=== PATIENT | male | born 1960 | race Caucasian/White ===

== ENCOUNTER 2016-06-30 12:11 | Emergency (ER) | payer OTHER ==
[2016-06-30] MEDS ORDERED: Ondansetron INJ* 2 MG/ML VIAL IV ONE (12:39)
[2016-06-30] MEDS ORDERED: Morphine INJ* 4 MG/ML 1 ML SYRINGE IV ONE (12:39)
[2016-06-30] MEDS ORDERED: NS 0.9% 1000 ML* 1,000 ML IV SCH (12:45)
[2016-06-30 13:04] LABS: Hematocrit 38 % (42-52); Hemoglobin 12.9 g/dl (14.0-18.0); Mean Corpuscular HGB Conc 34 g/dl (31-36); Mean Corpuscular Hemoglobin 32 pg (27-31); Mean Corpuscular Volume 94 fL (80-94); Mean Platelet Volume 7 um3 (7.4-10.4); Red Blood Count 4.03 10^6/ul (4.0-5.4); Red Cell Distribution Width 14 % (10.5-15); White Blood Count 6.5 10^3/ul (3.5-10.8)
[2016-06-30 13:18] LABS: Ammonia 68 mol/L (16-53)
[2016-06-30 13:20] LABS: ALT 30 U/L (7-52); AST 24 U/L (13-39); Albumin 4.1 g/dL (3.2-5.2); Alkaline Phosphatase 47 U/L (34-104); Anion Gap 7 mmol/L (2-11); Blood Urea Nitrogen 15 mg/dL (6-24); C Reactive Protein 4.75 mg/L (< 5.00); CO2 Carbon Dioxide 25 mmol/L (22-32); Calcium 9.7 mg/dL (8.6-10.3); Chloride 105 mmol/L (101-111); Creatine Kinase 76 U/L (10-223); EGFR African American 91.9 (>60); EGFR Non-African American 71.5 (>60); Globulin 2.8 g/dL (2-4); Glucose 100 mg/dL (70-100); Lipase 22 U/L (11.0-82.0); Magnesium 1.9 mg/dL (1.9-2.7); Potassium 3.9 mmol/L (3.5-5.0); Sodium 137 mmol/L (133-145); Total Protein 6.9 g/dL (6.4-8.9)
[2016-06-30 13:23] LABS: B Type Natriuretic Peptide 117 pg/mL
--- NOTE | 2016-06-30 13:32 | RAD ---
HISTORY: Abdominal pain COMPARISONS: June 04, 2015 VIEWS:1: Single frontal portable view of the chest at 1:21 PM FINDINGS: LINES AND TUBES: None. CARDIOMEDIASTINAL SILHOUETTE: The cardiomediastinal silhouette is normal for portable technique. PLEURA: The costophrenic angles are sharp. No pleural abnormalities are noted. LUNG PARENCHYMA: The lungs are clear. ABDOMEN: The upper abdomen is clear. There is no subphrenic gas. BONES AND SOFT TISSUES: No bone or soft tissue abnormalities are noted. IMPRESSION: NO ACTIVE CARDIOPULMONARY DISEASE.
[2016-06-30 13:39] LABS: Acetaminophen < 15 mcg/mL; Alcohol < 10 mg/dL (<10)
[2016-06-30 13:49] LABS: TSH (Thyroid Stimulating Horm) 2.13 mcIU/mL (0.34-5.60)
[2016-06-30] MEDS ORDERED: Iohexol 300* (CONTRAST) 10 ML SDV IV ONE (14:17)
[2016-06-30 14:55] LABS: Urine Bilirubin Negative (Negative); Urine Glucose Negative (Negative); Urine Nitrite Negative (Negative)
--- NOTE | 2016-06-30 15:55 | RAD ---
Indication: Lower abdominal pain. Contrast: Administered 120.3 ml of OMNIPAQUE 300 mg/ml CT of the abdomen and pelvis was performed after oral and IV contrast administration. Coronal and sagittal reconstructed images were obtained. The lung bases imaging no pleural fluid, nodules or masses. Heart is of normal size without evidence of pericardial effusion. Liver is normal in size. No focal lesions or intrahepatic ductal dilatation is noted. Spleen is normal in size. The gallbladder demonstrates no calcified gallstones. The pancreas demonstrates no mass or pancreatic duct dilatation. Common duct is not dilated. There is a left adrenal lesion measuring approximately 19 mm. This is consistent with a small adenoma. This is unchanged from previous exam of November 26, 2013. The kidneys demonstrates no hydronephrosis of either kidney. No solid masses are noted. No retroperitoneal lymphadenopathy is noted. No aneurysmal dilatation of the aorta is noted. No retroperitoneal adenopathy is noted. Iliac arteries are unremarkable. CT of the pelvis no retroperitoneal or pelvic lymphadenopathy. The urinary bladder is unremarkable the colon is filled with stool. The prostate is otherwise unremarkable. No hernias are noted. Urinary bladder is otherwise unremarkable. Colon is filled with stool. Evaluation of the small bowel demonstrates moderate distention of the proximal jejunum. The mid jejunum collapsed cyst to normal caliber. There appears to be some stricturing of the small bowel in the left mid abdomen. The possibility of adhesions should BE considered. This may be causing partial small bowel obstruction. IMPRESSION: THERE ARE SOME MODERATELY DISTENDED LOOPS OF SMALL BOWEL INVOLVING THE DUODENUM AND PROXIMAL JEJUNUM WITH SUGGESTION OF A NARROWING OF CALIBER OF SMALL BOWEL IN THE LEFT MID ABDOMEN. THE POSSIBILITY OF AN ADHESION SHOULD BE CONSIDERED. SIMILAR FINDINGS WERE PRESENT ON PRIOR EXAM OF NOVEMBER 26, 2013. LEFT ADRENAL MASS IS UNCHANGED FROM PREVIOUS EXAM. NO OTHER MASSES OR FLUID COLLECTIONS ARE NOTED.
--- NOTE | 2016-06-30 17:13 | ED ---
Jonathan Huynh Billy, scribed for Anthony Grant MD on 06/30/16 at 1235 . Abdominal Pain/Male - HPI Summary HPI Summary: Patient is a 55 year-old male coming to [facility] presenting with 10 days of lower abdominal pain. He states that he has sharp, stabbing pain in the bilateral lower quadrants. Nothing makes his symptoms better or worse. Pain severity 8/ 10. He states that he is somewhat constipated and that he has abnormally hard stools. Denies any fevers or chills. PSHx of appendectomy. - History of Current Complaint Chief Complaint: EDAbdPain Stated Complaint: ABD PAIN Time Seen by Provider: 06/30/16 12:29 Hx Obtained From: Patient Onset/Duration: Gradual Onset, Lasting Days, Still Present Timing: Constant Severity Initially: Moderate Severity Currently: Moderate Pain Intensity: 8 Pain Scale Used: 0-10 Numeric Location: Discrete At: RLQ, Discrete At: LLQ Character: Sharp Aggravating Factor(s): Nothing Alleviating Factor(s): Nothing Associated Signs And Symptoms: Positive: Constipation, Other - hard stools. Negative: Nausea - Allergies/Home Medications Allergies/Adverse Reactions: Allergies Allergy/AdvReac Type Severity Reaction Status Date / Time Gabapentin AdvReac Nausea And Verified 01/04/16 14:58 Vomiting Home Medications: Home Medications Aspirin Low Dose CHEW TAB* [Aspirin Low Dose TAB*] 81 mg PO DAILY 06/30/16 [ History Confirmed 06/30/16] Cholecalciferol [Vitamin D3 Super Strength] 2,000 unit PO DAILY 06/30/16 [ History Confirmed 06/30/16] Ferrous Sulfate TAB* 325 mg PO DAILY 06/30/16 [History Confirmed 06/30/16] Lisinopril/HCTZ 20/25(NF) [Zestoretic 20/25(NF)] 1 tab PO DAILY 06/30/16 [ History Confirmed 06/30/16] LoraTADine TAB(NF) [Claritin 10 MG TAB(NF)] 10 mg PO DAILY 06/30/16 [History Confirmed 06/30/16] Simvastatin TAB(NF) [Zocor(NF)] 10 mg PO DAILY 06/30/16 [History Confirmed 06/30] Tizanidine HCl 4 mg PO Q8HR PRN 06/30/16 [History Confirmed 06/30/16] amLODIPine TAB* [Norvasc TAB*] 5 mg PO DAILY 06/30/16 [History Confirmed ] PMH/Surg Hx/FS Hx/Imm Hx Endocrine/Hematology History: Reports: Hx Anemia Denies: Hx Anticoagulant Therapy, Hx Diabetes, Hx Thyroid Disease Cardiovascular History: Reports: Hx Angina, Hx Hypercholesterolemia, Hx Hypertension Denies: Hx Congestive Heart Failure, Hx Pacemaker/ICD Respiratory History: Reports: Hx Chronic Obstructive Pulmonary Disease (COPD), Other Respiratory Problems/Disorders - copd Denies: Hx Asthma GI History: Reports: Hx Gastroesophageal Reflux Disease, Other GI Disorders - appendectomy 11/2013 History: Denies: Hx Renal Disease Musculoskeletal History: Reports: Hx Back Problems - chronic low back pain, sciatica, Other Musculoskeletal History - back pain chronic Sensory History: Reports: Hx Contacts or Glasses Opthamlomology History: Reports: Hx Contacts or Glasses Neurological History: Reports: Other Neuro Impairments/Disorders - epilepsy, ETOH abuse Denies: Hx Dementia, Hx Seizures Psychiatric History: Reports: Hx Substance Abuse Denies: Hx Panic Disorder - Surgical History Surgery Procedure, Year, and Place: s/p appendectomy 11/2013 Hx Anesthesia Reactions: No - Immunization History Date of Tetanus Vaccine: Unk Date of Influenza Vaccine: None Infectious Disease History: No Infectious Disease History: Denies: Hx Hepatitis, Hx Human Immunodeficiency Virus (HIV), Traveled Outside the [place] in Last 30 Days - Family History Known Family History: Positive: Other - cancer - Social History Alcohol Use: Occasionally Alcohol Amount: no alcohol today Hx Substance Use: No Substance Use Type: Reports: None Substance Use Comment - Amount & Last Used: Daily Hx Tobacco Use: No - quit 2013 Smoking Status (MU): Former Smoker Type: Cigarettes Amount Used/How Often: quit 3 years ago Have You Smoked in the Last Year: Yes Review of Systems Negative: Fever, Chills Negative: Chest Pain Negative: Shortness Of Breath Positive: Abdominal Pain, Other - constipation, hard stools. Negative: Nausea Negative: Myalgia, Edema All Other Systems Reviewed And Are Negative: Yes Physical Exam Triage Information Reviewed: Yes Vital Signs On Initial Exam: Initial Vitals Temp Pulse Resp BP Pulse Ox 98.6 F 75 18 123/67 98 06/30/16 12:19 06/30/16 12:19 06/30/16 12:19 06/30/16 12:19 06/30/16 12:19 Vital Signs Reviewed: Yes Appearance: Positive: Well-Appearing, No Pain Distress Skin: Positive: Warm, Skin Color Reflects Adequate Perfusion, Dry Head/Face: Positive: Normal Head/Face Inspection Eyes: Positive: EOMI, FAWN Neck: Positive: Supple, Nontender Respiratory/Lung Sounds: Positive: Clear to Auscultation, Breath Sounds Present Cardiovascular: Positive: RRR Abdomen Description: Positive: Soft, Other: - Tenderness in the bilateral lower quadrants. Bowel Sounds: Positive: Hypoactive Musculoskeletal: Positive: Normal, Strength/ROM Intact Neurological: Positive: Normal, Sensory/Motor Intact, Alert, Oriented to Person Place, Time Psychiatric: Positive: Affect/Mood Appropriate Diagnostics - Vital Signs Vital Signs Temp Pulse Resp BP Pulse Ox 06/30/16 12:19 98.6 F 75 18 123/67 98 - Laboratory Lab Results: Lab Results 06/30/16 06/30/16 06/30/16 Range/Units 12:50 12:50 12:50 WBC 6.5 (3.5-10.8) 10^3/ul RBC 4.03 (4.0-5.4) 10^6/ul Hgb 12.9 L (14.0-18.0) g/dl Hct 38 L (42-52) % MCV 94 (80-94) fL MCH 32 H (27-31) pg MCHC 34 (31-36) g/dl RDW 14 (10.5-15) % Plt Count 386 (150-450) 10^3/ul MPV 7 L (7.4-10.4) um3 Neut % (Auto) 55.4 (38-83) % Lymph % (Auto) 28.5 (25-47) % Whitley % (Auto) 13.3 H (1-9) % Eos % (Auto) 1.3 (0-6) % Baso % (Auto) 1.5 (0-2) % Absolute Neuts (auto) 3.6 (1.5-7.7) 10^3/ul Absolute Lymphs (auto) 1.9 (1.0-4.8) 10^3/ul Absolute Monos (auto) 0.9 H (0-0.8) 10^3/ul Absolute Eos (auto) 0.1 (0-0.6) 10^3/ul Absolute Basos (auto) 0.1 (0-0.2) 10^3/ul Absolute Nucleated RBC 0 10^3/ul Nucleated RBC % 0.1 INR (Anticoag Therapy) 0.94 (0.89-1.11) APTT 27.9 (26.0-36.3) seconds Sodium 137 (133-145) mmol/L Potassium 3.9 (3.5-5.0) mmol/L Chloride 105 (101-111) mmol/L Carbon Dioxide 25 (22-32) mmol/L Anion Gap 7 (2-11) mmol/L BUN 15 (6-24) mg/dL Creatinine 1.07 (0.67-1.17) mg/dL Est GFR ( Amer) 91.9 (>60) Est GFR (Non-Af Amer) 71.5 (>60) BUN/Creatinine Ratio 14.0 (8-20) Glucose 100 (70-100) mg/dL Lactic Acid (0.5-2.0) mmol/L Calcium 9.7 (8.6-10.3) mg/dL Magnesium 1.9 (1.9-2.7) mg/dL Total Bilirubin 0.30 (0.2-1.0) mg/dL AST 24 (13-39) U/L ALT 30 (7-52) U/L Alkaline Phosphatase 47 (34-104) U/L Ammonia (16-53) mol/L Total Creatine Kinase 76 (10-223) U/L CK-MB (CK-2) 1.1 (0.6-6.3) ng/mL Troponin I 0.00 (<0.04) ng/mL C-Reactive Protein 4.75 (< 5.00) mg/L B-Natriuretic Peptide ( - 100) pg/mL Total Protein 6.9 (6.4-8.9) g/dL Albumin 4.1 (3.2-5.2) g/dL Globulin 2.8 (2-4) g/dL Albumin/Globulin Ratio 1.5 (1-3) Lipase 22 (11.0-82.0) U/L TSH 2.13 (0.34-5.60) mcIU/mL Urine Color Urine Appearance Urine pH (5-9) Ur Specific Eola (1.010-1.030) Urine Protein (Negative) Urine Ketones (Negative) Urine Blood (Negative) Urine Nitrate (Negative) Urine Bilirubin (Negative) Urine Urobilinogen (Negative) Ur Leukocyte Esterase (Negative) Urine Glucose (Negative) Urine Ascorbic Acid (Negative) Acetaminophen < 15 mcg/mL Serum Alcohol < 10 (<10) mg/dL 06/30/16 06/30/16 06/30/16 Range/Units 12:50 12:50 14:45 WBC (3.5-10.8) 10^3/ul RBC (4.0-5.4) 10^6/ul Hgb (14.0-18.0) g/dl Hct (42-52) % MCV (80-94) fL MCH (27-31) pg MCHC (31-36) g/dl RDW (10.5-15) % Plt Count (150-450) 10^3/ul MPV (7.4-10.4) um3 Neut % (Auto) (38-83) % Lymph % (Auto) (25-47) % Whitley % (Auto) (1-9) % Eos % (Auto) (0-6) % Baso % (Auto) (0-2) % Absolute Neuts (auto) (1.5-7.7) 10^3/ul Absolute Lymphs (auto) (1.0-4.8) 10^3/ul Absolute Monos (auto) (0-0.8) 10^3/ul Absolute Eos (auto) (0-0.6) 10^3/ul Absolute Basos (auto) (0-0.2) 10^3/ul Absolute Nucleated RBC 10^3/ul Nucleated RBC % INR (Anticoag Therapy) (0.89-1.11) APTT (26.0-36.3) seconds Sodium (133-145) mmol/L Potassium (3.5-5.0) mmol/L Chloride (101-111) mmol/L Carbon Dioxide (22-32) mmol/L Anion Gap (2-11) mmol/L BUN (6-24) mg/dL Creatinine (0.67-1.17) mg/dL Est GFR ( Amer) (>60) Est GFR (Non-Af Amer) (>60) BUN/Creatinine Ratio (8-20) Glucose (70-100) mg/dL Lactic Acid 1.0 (0.5-2.0) mmol/L Calcium (8.6-10.3) mg/dL Magnesium (1.9-2.7) mg/dL Total Bilirubin (0.2-1.0) mg/dL AST (13-39) U/L ALT (7-52) U/L Alkaline Phosphatase (34-104) U/L Ammonia 68 H (16-53) mol/L Total Creatine Kinase (10-223) U/L CK-MB (CK-2) (0.6-6.3) ng/mL Troponin I (<0.04) ng/mL C-Reactive Protein (< 5.00) mg/L B-Natriuretic Peptide 117 H ( - 100) pg/mL Total Protein (6.4-8.9) g/dL Albumin (3.2-5.2) g/dL Globulin (2-4) g/dL Albumin/Globulin Ratio (1-3) Lipase (11.0-82.0) U/L TSH (0.34-5.60) mcIU/mL Urine Color Yellow Urine Appearance Clear Urine pH 6.0 (5-9) Ur Specific Eola 1.013 (1.010-1.030) Urine Protein Negative (Negative) Urine Ketones Negative (Negative) Urine Blood Negative (Negative) Urine Nitrate Negative (Negative) Urine Bilirubin Negative (Negative) Urine Urobilinogen Negative (Negative) Ur Leukocyte Esterase Negative (Negative) Urine Glucose Negative (Negative) Urine Ascorbic Acid * H (Negative) Acetaminophen mcg/mL Serum Alcohol (<10) mg/dL Result Diagrams: 06/30/16 12:50 06/30/16 12:50 Lab Statement: Any lab studies that have been ordered have been reviewed, and results considered in the medical decision making process. - Radiology CXR Xray Interpretation: No Acute Changes Radiology Interpretation Completed By: Radiologist - CT abd/pel w CT Interpretation Completed By: Radiologist - THERE ARE SOME MODERATELY DISTENDED LOOPS OF SMALL BOWEL INVOLVING THE DUODENUM AND PROXIMAL JEJUNUM WITH SUGGESTION OF A NARROWING OF CALIBER OF SMALL BOWEL IN THE LEFT MID ABDOMEN. THE POSSIBILITY OF AN ADHESION SHOULD BE CONSIDERED. SIMILAR FINDINGS WERE PRESENT ON PRIOR EXAM OF NOVEMBER 26, 2013. LEFT ADRENAL MASS IS UNCHANGED FROM PREVIOUS EXAM. NO OTHER MASSES OR FLUID COLLECTIONS ARE NOTED. Abdominal Pain Fem Course/Dx - Course Assessment/Plan: WELL IN ED. DISCUSSED RESULTS WITH PATIENT. ON CT THERE APPEARS TO BE A NARROWING OF THE SMALL BOWEL. DISCUSSED WITH PATIENT AND DR ALVARADO, SURGERY. PATIENT'S PAIN UNDER CONTROL AT THIS TIME, TOLERATING PO. HE WILL F/U OUT PATIENT WITH SURGERY. HE WAS TOLD, AND AGREED, TO RETURNING TO THE EMERGENCY DEPARTMENT IF HE WORSENS OR HAS ANY QUESTIONS OR CONCERNS. DISCHARGE HOME STABLE. - Diagnoses Provider Diagnoses: Abdominal pain - Provider Notifications Discussed Care Of Patient With: Dr. Alvarado (surgery) @ [id number]: recommends follow up as outpatient. Discharge - Discharge Plan Condition: Stable Disposition: HOME Patient Education Materials: Abdominal Pain (ED) Referrals: Jamie Neri MD [Primary Care Provider] - Vince Alvarado MD [Medical Doctor] - Additional Instructions: FOLLOW UP WITH SURGERY, DR ALVARADO. CALL HIS OFFICE FOR A FOLLOW UP. RETURN TO THE EMERGENCY DEPARTMENT FOR ANY WORSENING OF YOUR CONDITION; PAIN, VOMITING, FEVER, YOU FEEL ILL OR QUESTIONS OR CONCERNS. The documentation as recorded by the Jonathan rome Billy accurately reflects the service I personally performed and the decisions made by me, Anthony Grant MD.
[2016-06-30 17:16] VITALS: BP 115/74
== END 2016-06-30 17:22 | disposition home or self-care (01) ==
LOC: ED 12:11
DX: R10.32 Left lower quadrant pain (principal); K59.00 Constipation, unspecified; Z87.891 Personal history of nicotine dependence
CPT/HCPCS: 36415; 71010; 74177; 80053; 80320; 80329; 81003; 82140; 82550; 82553; 83605; 83690; 83735; 83880; 84443; 84484; 85025; 85610; 85730; 86140; 96374; 96375; 99284; G0480; J2270; J2405; Q9967

== ENCOUNTER 2016-11-05 10:21 | Emergency (ER) | payer OTHER ==
[2016-11-05 10:38] VITALS: BP 116/60
--- NOTE | 2016-11-05 11:33 | UC ---
Ear Complaint HPI - HPI Summary HPI Summary: 3 days ago he punctured left ear drum with a q-tip, he has had pain and bloody drainage - History of Current Complaint Chief Complaint: EDEarPain Stated Complaint: EAR PAIN Time Seen by Provider: 11/05/16 11:19 Hx Obtained From: Patient Onset/Duration: Sudden Onset Severity Initially: Moderate Severity Currently: Moderate Pain Intensity: 7 Pain Scale Used: 0-10 Numeric Aggravating Factors: Nothing Alleviating Factors: Nothing Associated Signs/Symptoms: Positive: Discharge, Trauma to Ear. Negative: Hearing Loss, Foreign Body Sensation, Swelling @, URI Symptoms - Allergies/Home Medications Allergies/Adverse Reactions: Allergies Allergy/AdvReac Type Severity Reaction Status Date / Time Gabapentin AdvReac Nausea And Verified 01/04/16 14:58 Vomiting PMH/Surg Hx/FS Hx/Imm Hx Previously Healthy: No - Anemia Endocrine History: Diabetes Cardiovascular History: Hypertension, Myocardial Infarction Respiratory History: COPD GI/ History: Gastroesophageal Reflux Neurological History: CVA Other History Of: Negative For: Anticoagulant Therapy - Surgical History Surgical History: Yes Surgery Procedure, Year, and Place: s/p appendectomy 11/2013 - Family History Known Family History: Positive: Other - cancer - Social History Occupation: Disabled Lives: Alone Alcohol Use: Occasionally Alcohol Amount: no alcohol today Substance Use Type: None Substance Use Comment - Amount & Last Used: Daily Smoking Status (MU): Former Smoker Type: Cigarettes Amount Used/How Often: quit 3 years ago Have You Smoked in the Last Year: Yes When Did the Patient Quit Smoking/Using Tobacco: November 2013 Household Exposure Type: Cigarettes - Immunization History Most Recent Influenza Vaccination: unknown Most Recent Tetanus Shot: 2011?? Most Recent Pneumonia Vaccination: never Review of Systems Constitutional: Negative Skin: Negative Eyes: Negative ENT: Ear Ache - left ear pain with blood drainage Respiratory: Negative Cardiovascular: Negative Gastrointestinal: Negative Genitourinary: Negative Motor: Negative Neurovascular: Negative Musculoskeletal: Negative Neurological: Negative Psychological: Negative All Other Systems Reviewed And Are Negative: Yes Physical Exam Triage Information Reviewed: Yes Appearance: Well-Appearing - poor self care, Pain Distress - mild, Obese Vital Signs: Initial Vital Signs Temp 98.8 F 11/05/16 10:36 Pulse 60 11/05/16 10:36 Resp 17 11/05/16 10:36 BP 116/60 11/05/16 10:36 Pulse Ox 100 11/05/16 10:36 Vital Signs Reviewed: Yes Eye Exam: Normal Eyes: Positive: Conjunctiva Clear ENT Exam: Normal ENT: Positive: Normal ENT inspection, Hearing grossly normal, Pharynx normal, TMs normal - right, Other: - left tm with blood clot and apparent rupture about 7 o'clock. Negative: Nasal congestion, Nasal drainage, Tonsillar swelling, Tonsillar exudate, Trismus, Muffled/hoarse voice Neck exam: Normal Neck: Positive: Supple, Nontender Respiratory Exam: Normal Respiratory: Positive: No respiratory distress, No accessory muscle use Cardiovascular Exam: Normal Cardiovascular: Positive: RRR, Pulses Normal, Brisk Capillary Refill Musculoskeletal Exam: Normal Musculoskeletal: Positive: Strength Intact, ROM Intact, No Edema Neurological Exam: Normal Neurological: Positive: Alert, Muscle Tone Normal Psychological Exam: Normal Skin Exam: Normal Ear Complaint Course/Dx - Course Course Of Treatment: ofloxin ear drops, tylenol/ibuprofen for pain, keep ear bone dry, follow with PCP this week - Differential Dx/Diagnosis Differential Diagnosis/HQI/PQRI: Cellulitis, Cerumen Impaction, Otitis Externa, Otitis Media, Perforated TM, URI Provider Diagnoses: Left Perferation of TM Discharge - Discharge Plan Condition: Stable Disposition: HOME Prescriptions: Ofloxacin (Otic) [Floxin Otic] 0.3 % OT BID #5 drop Patient Education Materials: Ruptured Eardrum (ED) Referrals: Jamie Neri MD [Primary Care Provider] - 1 Week Additional Instructions: 1. It is vital that you keep your ear canal BONE DRY! 2. ALSO Imperative you get rechecked by primary care this week to assure this is healing as you may need referral to [facility]!
== END 2016-11-05 11:49 | disposition home or self-care (01) ==
LOC: ED 10:21
DX: H72.92 Unspecified perforation of tympanic membrane, left ear (principal); Z87.891 Personal history of nicotine dependence; I25.2 Old myocardial infarction; I10 Essential (primary) hypertension; E11.9 Type 2 diabetes mellitus without complications; K21.9 Gastro-esophageal reflux disease without esophagitis
CPT/HCPCS: 99282

== ENCOUNTER 2016-11-14 12:44 | Emergency (ER) | payer OTHER ==
[2016-11-14] MEDS ORDERED: Ondansetron INJ* 2 MG/ML VIAL IV ONE (14:55)
[2016-11-14] MEDS ORDERED: Tetan/Diph/Pertus SYR(Tdap)* 0.5 ML SYR(BOOSTRIX) use SYR IM ONE (14:55)
[2016-11-14] MEDS ORDERED: Morphine INJ* 4 MG/ML 1 ML SYRINGE IV ONE (14:55)
[2016-11-14 15:06] LABS: Hematocrit 39 % (42-52); Hemoglobin 13.2 g/dl (14.0-18.0); Mean Corpuscular HGB Conc 34 g/dl (31-36); Mean Corpuscular Hemoglobin 33 pg (27-31); Mean Corpuscular Volume 96 fL (80-94); Mean Platelet Volume 7 um3 (7.4-10.4); Red Blood Count 4.08 10^6/ul (4.0-5.4); Red Cell Distribution Width 14 % (10.5-15); White Blood Count 8.6 10^3/ul (3.5-10.8)
[2016-11-14 15:21] LABS: Albumin 4.3 g/dL (3.2-5.2); BUN/Creatinine Ratio 12.8 (8-20); Calcium 9.1 mg/dL (8.6-10.3); EGFR African American 89.7 (>60); EGFR Non-African American 69.7 (>60); Globulin 3.2 g/dL (2-4); Total Bilirubin 0.5 mg/dL (0.2-1.0); Total Protein 7.5 g/dL (6.4-8.9)
[2016-11-14] MEDS ORDERED: Iohexol 300* (CONTRAST) 10 ML SDV IV ONE (15:29)
[2016-11-14] MEDS ORDERED: NS 0.9% 1000 ML* 1,000 ML IV ONE (15:34)
--- NOTE | 2016-11-14 16:05 | RAD ---
INDICATION: Right elbow injury COMPARISON: None TECHNIQUE: AP, lateral, and oblique views were obtained. FINDINGS: There are findings suspicious for an essentially nondisplaced fracture radial head. There is a joint effusion which is consistent with hemarthrosis in the setting of acute trauma. The soft tissues on but the medial epicondyle. The elbow articulates normally. IMPRESSION: FINDINGS SUSPICIOUS FOR NONDISPLACED RADIAL HEAD FRACTURE. HEMARTHROSIS.
--- NOTE | 2016-11-14 16:05 | RAD ---
INDICATION: Right forearm injury COMPARISON: None TECHNIQUE: AP and lateral views were obtained. FINDINGS: There is no acute fracture the forearm. There is soft tissue swelling about the mid forearm along the ulnar aspect. IMPRESSION: SOFT TISSUE SWELLING.
--- NOTE | 2016-11-14 16:07 | RAD ---
INDICATION: Right wrist injury COMPARISON: None TECHNIQUE: AP, lateral, and oblique views were obtained. FINDINGS: There is a small ossific fragment over the dorsal aspect of the wrist associated soft tissue swelling. The findings are most consistent with a triquetral fracture. There are no additional fractures. The carpals articulate normally.. IMPRESSION: FINDINGS MOST CONSISTENT WITH TRIQUETRAL FRACTURE.
--- NOTE | 2016-11-14 16:10 | RAD ---
INDICATION: Intracranial injury COMPARISON: CT brain January 15, 2008 TECHNIQUE: Noncontrast axial source images were acquired from the skull base to the vertex. FINDINGS: Ventricles/sulci: The ventricles and cisterns are unchanged in size and configuration for age. 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 Brain parenchyma: There is no new focal parenchymal finding, evidence of intracranial mass, or intracranial mass effect. Intracranial hemorrhage:None. Extra-axial spaces: There are no abnormal extra axial fluid collections or evidence of extra-axial mass. Calvarium: There is no calvarial fracture or other calvarial abnormality. Scalp: There is no evidence of scalp or extracalvarial soft tissue abnormality. Paranasal sinuses/mastoid: The paranasal sinuses and mastoid air cells are clear. Other: None. IMPRESSION: NO ACUTE INTRACRANIAL FINDINGS. PORENCEPHALIC CHANGE RIGHT POSTERIOR PARIETAL REGION WITH EXPANSION OF THE ATRIA THE RIGHT LATERAL VENTRICLE
[2016-11-14 16:13] LABS: Potassium 4.5 mmol/L (3.5-5.0)
--- NOTE | 2016-11-14 16:22 | RAD ---
INDICATION: Trauma, neck pain. COMPARISON: Comparison is made with a prior CT of the cervical spine from December 10, 2014. TECHNIQUE: Contiguous axial sections were obtained from the skull base through the T2 vertebra. Images were reconstructed in the sagittal and coronal planes. FINDINGS: There is straightening of the cervical spine with loss of the normal cervical lordosis. No prevertebral soft tissue swelling or fracture is seen. At the C2-C3 level there is mild posterior uncinate process spurring. No significant spinal canal narrowing is present. There is mild neural foraminal narrowing on the right side. At the C3-C4 level there is mild posterior uncinate process spurring. No significant spinal canal narrowing is present. There is moderate bilateral neural foraminal narrowing. At the C4-C5 level there is mild posterior uncinate process spurring. There is mild spinal canal narrowing and moderate bilateral neural foraminal narrowing. At the C5-C6 level there is moderate posterior uncinate process spurring. There is moderate spinal canal narrowing and moderate neural foraminal narrowing on the right side and moderate to severe neural foraminal narrowing on the left side. At the C6-C7 level there is moderate posterior uncinate process spurring. There is mild to moderate spinal canal narrowing and moderate bilateral neural foraminal narrowing. There appears to be a small bilateral pleural effusions. IMPRESSION: 1. NO EVIDENCE FOR FRACTURE OR SUBLUXATION. 2. MODERATE CERVICAL SPONDYLOSIS. 3. SMALL BILATERAL PLEURAL EFFUSIONS.
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
[2016-11-14] MEDS ORDERED: Cephalexin CAP* 500 MG PO ONE (17:31)
[2016-11-14] MEDS ORDERED: HYDROcodone/ACETAMIN 5-325 MG* 1 TAB PO ONE (17:32)
[2016-11-14 17:43] LABS: Urine Bilirubin Negative (Negative); Urine Glucose Negative (Negative); Urine Nitrite Negative (Negative)
[2016-11-14 18:27] VITALS: BP 111/75
== END 2016-11-14 18:24 | disposition home or self-care (01) ==
LOC: ED 12:44
DX: S06.0X9A Concussion with loss of consciousness of unspecified duration, initial encounter (principal); R07.9 Chest pain, unspecified; S52.123A Displaced fracture of head of unspecified radius, initial encounter for closed fracture; S62.101A Fracture of unspecified carpal bone, right wrist, initial encounter for closed fracture; Z87.891 Personal history of nicotine dependence; R51 Headache; V49.9XXA Car occupant (driver) (passenger) injured in unspecified traffic accident, initial encounter; Y93.89 Activity, other specified; Y92.9 Unspecified place or not applicable; S50.812A Abrasion of left forearm, initial encounter; S80.212A Abrasion, left knee, initial encounter; S80.211A Abrasion, right knee, initial encounter
CPT/HCPCS: 36415; 70450; 71260; 72125; 74177; 80053; 81003; 83605; 85025; 85610; 86850; 86900; 86901; 90471; 90715; 96374; 96375; 99283; A9270-GY; J2270; J2405; Q9967

== ENCOUNTER 2016-12-08 18:37 | Observation (INO) | payer OTHER ==
[2016-12-08] MEDS ORDERED: Aspirin Low Dose CHEW TAB* 81 MG PO ONE (19:07)
[2016-12-08] MEDS ORDERED: Ondansetron INJ* 2 MG/ML VIAL IV ONE (19:09)
[2016-12-08] MEDS ORDERED: Morphine INJ* 4 MG/ML 1 ML SYRINGE IV ONE (19:09)
[2016-12-08] MEDS ORDERED: NS 0.9% 1000 ML* 1,000 ML IV ONE (19:09)
[2016-12-08 19:42] LABS: Hematocrit 38 % (42-52); Hemoglobin 12.9 g/dl (14.0-18.0); Mean Corpuscular HGB Conc 34 g/dl (31-36); Mean Corpuscular Hemoglobin 32 pg (27-31); Mean Corpuscular Volume 95 fL (80-94); Mean Platelet Volume 6 um3 (7.4-10.4); Red Blood Count 4.03 10^6/ul (4.0-5.4); Red Cell Distribution Width 14 % (10.5-15); White Blood Count 4.8 10^3/ul (3.5-10.8)
--- NOTE | 2016-12-08 19:51 | RAD ---
HISTORY: Chest pain COMPARISONS: June 30, 2016 VIEWS:1: Single frontal portable view of the chest at 7:41 PM FINDINGS: LINES AND TUBES: None. CARDIOMEDIASTINAL SILHOUETTE: The cardiomediastinal silhouette is normal for portable technique. PLEURA: The costophrenic angles are sharp. No pleural abnormalities are noted. LUNG PARENCHYMA: The lungs are clear. ABDOMEN: The upper abdomen is clear. There is no subphrenic gas. BONES AND SOFT TISSUES: No bone or soft tissue abnormalities are noted. IMPRESSION: NO ACTIVE CARDIOPULMONARY DISEASE.
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
[2016-12-08 19:55] LABS: Albumin 4.3 g/dL (3.2-5.2); Calcium 9.6 mg/dL (8.6-10.3); EGFR African American 99.1 (>60); Globulin 2.6 g/dL (2-4); Potassium 3.9 mmol/L (3.5-5.0); Total Bilirubin 0.5 mg/dL (0.2-1.0); Total Protein 6.9 g/dL (6.4-8.9)
--- NOTE | 2016-12-08 20:31 | ED ---
Johnathan Huynh Alfonso, scribed for Rula Connell MD on 12/08/16 at 1932 . HPI Chest Pain - HPI Summary HPI Summary: This patient is a 56 year old M BIBA to [facility] with a chief complaint of mid sternal CP since 90 minutes ago. The CP does not radiate. The CC is described as sharp pain. The patient rates the pain 9/10 in severity. Symptoms aggravated by deep breaths. Symptoms alleviated by nothing. Patient reports right calf cramping and right arm pain. Pt is currently on NC O2. PMHx includes HTN, HLD, CAD (DC), and CVA. - History of Current Complaint Chief Complaint: EDChestPainROMI Time Seen by Provider: 12/08/16 18:52 Onset/Duration: Started Minutes Ago - 90, Still Present Timing: Constant Initial Severity: Moderate Current Severity: Moderate Pain Intensity: 9 Pain Scale Used: 0-10 Numeric Chest Pain Location: Mid Sternal Chest Pain Radiates: No Character: Sharp/Stabbing Aggravating Factor(s): Deep Breaths Alleviating Factor(s): Nothing Associated Signs and Symptoms: Positive: Other: - right calf cramping and right arm pain - Allergy/Home Medications Allergies/Adverse Reactions: Allergies Allergy/AdvReac Type Severity Reaction Status Date / Time Gabapentin AdvReac Nausea And Verified 11/14/16 12:55 Vomiting PMH/Surg Hx/FS Hx/Imm Hx Endocrine/Hematology History: Reports: Hx Anemia Denies: Hx Anticoagulant Therapy - ASA daily, Hx Diabetes, Hx Thyroid Disease Cardiovascular History: Reports: Hx Angina, Hx Coronary Artery Disease, Hx Hypercholesterolemia, Hx Hypertension Denies: Hx Congestive Heart Failure, Hx Pacemaker/ICD Respiratory History: Reports: Hx Chronic Obstructive Pulmonary Disease (COPD), Other Respiratory Problems/Disorders - copd Denies: Hx Asthma GI History: Reports: Hx Gastroesophageal Reflux Disease, Other GI Disorders - appendectomy 11/2013 History: Denies: Hx Renal Disease Musculoskeletal History: Reports: Hx Back Problems - chronic low back pain, sciatica, Other Musculoskeletal History - back pain chronic Sensory History: Reports: Hx Contacts or Glasses Opthamlomology History: Reports: Hx Contacts or Glasses Neurological History: Reports: Hx CVA, Other Neuro Impairments/Disorders - epilepsy, ETOH abuse Denies: Hx Dementia, Hx Seizures Psychiatric History: Reports: Hx Substance Abuse Denies: Hx Panic Disorder - Surgical History Surgery Procedure, Year, and Place: s/p appendectomy 11/2013 Hx Anesthesia Reactions: No - Immunization History Date of Tetanus Vaccine: Unk Date of Influenza Vaccine: None Infectious Disease History: Denies: Hx Hepatitis, Hx Human Immunodeficiency Virus (HIV), Traveled Outside the [place] in Last 30 Days - Family History Known Family History: Positive: Other - cancer - Social History Lives: With Family - Friend Alcohol Use: Occasionally Alcohol Amount: no alcohol today Hx Substance Use: Yes Substance Use Type: Reports: Marijuana Substance Use Comment - Amount & Last Used: Daily Hx Tobacco Use: No - quit 2013 Smoking Status (MU): Former Smoker Type: Cigarettes Amount Used/How Often: quit 3 years ago Have You Smoked in the Last Year: Yes Review of Systems Positive: Chest Pain Musculoskeletal: Other - right calf cramping and right arm pain All Other Systems Reviewed And Are Negative: Yes Physical Exam Triage Information Reviewed: Yes Vital Signs On Initial Exam: Initial Vitals BP 110/87 12/08/16 19:21 Vital Signs Reviewed: Yes Appearance: Positive: Well-Appearing, Pain Distress - Intermittent moderate distress. Skin: Positive: Skin Color Reflects Adequate Perfusion, Dry, Other - Left knee abrasion healing well. Eyes: Positive: EOMI, FAWN ENT: Positive: Pharynx normal, TMs normal Neck: Positive: Supple, Nontender Respiratory/Lung Sounds: Positive: Clear to Auscultation, Breath Sounds Present. Negative: Rales, Rhonchi, Wheezes Cardiovascular: Positive: RRR, Other - No gallop. Negative: Murmur, Rub Abdomen Description: Positive: Nontender, Soft, Other: - No rebound. Negative: Distended, Guarding Bowel Sounds: Positive: Present Musculoskeletal: Positive: Other - Right wrist and right elbow tenderness. Negative: Edema Left, Edema Right Neurological: Positive: Sensory/Motor Intact, Alert, Oriented to Person Place, Time, CN Intact II-III Psychiatric: Positive: Affect/Mood Appropriate Diagnostics - Vital Signs Vital Signs Temp Pulse Resp BP Pulse Ox 12/08/16 20:05 19 12/08/16 19:42 98.2 F 80 12 110/79 97 12/08/16 19:30 78 14 110/79 99 12/08/16 19:23 74 99 12/08/16 19:21 110/87 - Laboratory Lab Results: Lab Results 12/08/16 12/08/16 12/08/16 Range/Units 19:30 19:30 19:30 WBC 4.8 (3.5-10.8) 10^3/ul RBC 4.03 (4.0-5.4) 10^6/ul Hgb 12.9 L (14.0-18.0) g/dl Hct 38 L (42-52) % MCV 95 H (80-94) fL MCH 32 H (27-31) pg MCHC 34 (31-36) g/dl RDW 14 (10.5-15) % Plt Count 423 (150-450) 10^3/ul MPV 6 L (7.4-10.4) um3 Neut % (Auto) 56.5 (38-83) % Lymph % (Auto) 27.5 (25-47) % [place] % (Auto) 13.2 H (1-9) % Eos % (Auto) 2.0 (0-6) % Baso % (Auto) 0.8 (0-2) % Absolute Neuts (auto) 2.7 (1.5-7.7) 10^3/ul Absolute Lymphs (auto) 1.3 (1.0-4.8) 10^3/ul Absolute Monos (auto) 0.6 (0-0.8) 10^3/ul Absolute Eos (auto) 0.1 (0-0.6) 10^3/ul Absolute Basos (auto) 0 (0-0.2) 10^3/ul Absolute Nucleated RBC 0 10^3/ul Nucleated RBC % 0.1 D-Dimer, Quantitative < 200 (Less Than 230) ng/mL Sodium 134 (133-145) mmol/L Potassium 3.9 (3.5-5.0) mmol/L Chloride 99 L (101-111) mmol/L Carbon Dioxide 28 (22-32) mmol/L Anion Gap 7 (2-11) mmol/L BUN 16 (6-24) mg/dL Creatinine 1.00 (0.67-1.17) mg/dL Est GFR ( Amer) 99.1 (>60) Est GFR (Non-Af Amer) 77.0 (>60) BUN/Creatinine Ratio 16.0 (8-20) Glucose 121 H (70-100) mg/dL Lactic Acid (0.5-2.0) mmol/L Calcium 9.6 (8.6-10.3) mg/dL Total Bilirubin 0.50 (0.2-1.0) mg/dL AST 20 (13-39) U/L ALT 19 (7-52) U/L Alkaline Phosphatase 54 (34-104) U/L Troponin I 0.00 (<0.04) ng/mL Total Protein 6.9 (6.4-8.9) g/dL Albumin 4.3 (3.2-5.2) g/dL Globulin 2.6 (2-4) g/dL Albumin/Globulin Ratio 1.7 (1-3) 12/08/16 Range/Units 19:30 WBC (3.5-10.8) 10^3/ul RBC (4.0-5.4) 10^6/ul Hgb (14.0-18.0) g/dl Hct (42-52) % MCV (80-94) fL MCH (27-31) pg MCHC (31-36) g/dl RDW (10.5-15) % Plt Count (150-450) 10^3/ul MPV (7.4-10.4) um3 Neut % (Auto) (38-83) % Lymph % (Auto) (25-47) % [place] % (Auto) (1-9) % Eos % (Auto) (0-6) % Baso % (Auto) (0-2) % Absolute Neuts (auto) (1.5-7.7) 10^3/ul Absolute Lymphs (auto) (1.0-4.8) 10^3/ul Absolute Monos (auto) (0-0.8) 10^3/ul Absolute Eos (auto) (0-0.6) 10^3/ul Absolute Basos (auto) (0-0.2) 10^3/ul Absolute Nucleated RBC 10^3/ul Nucleated RBC % D-Dimer, Quantitative (Less Than 230) ng/mL Sodium (133-145) mmol/L Potassium (3.5-5.0) mmol/L Chloride (101-111) mmol/L Carbon Dioxide (22-32) mmol/L Anion Gap (2-11) mmol/L BUN (6-24) mg/dL Creatinine (0.67-1.17) mg/dL Est GFR ( Amer) (>60) Est GFR (Non-Af Amer) (>60) BUN/Creatinine Ratio (8-20) Glucose (70-100) mg/dL Lactic Acid 1.0 (0.5-2.0) mmol/L Calcium (8.6-10.3) mg/dL Total Bilirubin (0.2-1.0) mg/dL AST (13-39) U/L ALT (7-52) U/L Alkaline Phosphatase (34-104) U/L Troponin I (<0.04) ng/mL Total Protein (6.4-8.9) g/dL Albumin (3.2-5.2) g/dL Globulin (2-4) g/dL Albumin/Globulin Ratio (1-3) Result Diagrams: 12/08/16 19:30 12/08/16 19:30 Lab Statement: Any lab studies that have been ordered have been reviewed, and results considered in the medical decision making process. - Radiology Elbow X-Ray Radiology Interpretation Completed By: Radiologist - JOINT EFFUSION WITH MINIMALLY DISPLACED FRACTURE OF THE RADIAL HEAD ED physician has reviewed this radiology report and agrees. Wrist X-Ray Radiology Interpretation Completed By: Radiologist - THE SUSPECTED TRIQUETRAL FRACTURE NOTED ON THE PREVIOUS EXAMINATION IS NOT WELL-VISUALIZED ON THE CURRENT EXAMINATION ED physician has reviewed this radiology report and agrees. CXR Radiology Interpretation Completed By: Radiologist - NO ACTIVE CARDIOPULMONARY DISEASE. ED physician has reviewed this radiology report and agrees. - EKG 1857 Cardiac Rate: NL - BPM 71 EKG Rhythm: Sinus Rhythm EKG Interpretation: NAC Chest Pain Course/Dx - Course Course Of Treatment: 56 yo male with cp being admitted by , he was also wearing a splint wrapped in a sock describing both a wrist and elbow fx. xrays now only show a radial head fx and so a sling was ordered - Diagnoses Provider Diagnoses: Radial head fracture, Chest pain - Provider Notifications Discussed Care Of Patient With: Nguyễn Pedersen Time Discussed With Above Provider: 20:29 Instructed by Provider To: Other - Consulted Dr. Pedersen (hospitalist) who agrees to admit. Discharge - Discharge Plan Condition: Stable Disposition: ADMITTED TO [facility] Referrals: Stevanovic,Radomir D, MD [Primary Care Provider] - The documentation as recorded by the Johnathan rome Alfonso accurately reflects the service I personally performed and the decisions made by me, Rula Connell MD.
[2016-12-08] MEDS ORDERED: Thiamine IV 100 MG, Folic Acid IV* 1 MG, Multiple Vitamin IV ADULT* 10 ML in D5NS 0.9% ... IV ONE (20:32)
[2016-12-08] MEDS ORDERED: Acetaminophen TAB* 325 MG PO PRN (20:32)
[2016-12-08] MEDS ORDERED: Ondansetron INJ* 2 MG/ML VIAL IV PRN (20:32)
[2016-12-08] MEDS ORDERED: Albuterol HFA INHALER* 8 gm MDI INH PRN (20:35)
[2016-12-08] MEDS ORDERED: HYDROcodone/ACETAMIN 5-325 MG* 1 TAB PO PRN (20:35)
[2016-12-08] MEDS ORDERED: tiZANidine TAB* 2 MG PO PRN (20:35)
[2016-12-08] MEDS ORDERED: Aclidinium POWDER MDI(NF) INH PRN (20:35)
[2016-12-08] MEDS ORDERED: LORazepam TAB(*) 1 MG PO SCH (21:00)
[2016-12-08 22:10] LABS: Hematocrit 37 % (42-52); Hemoglobin 12.5 g/dl (14.0-18.0)
--- NOTE | 2016-12-09 01:15 | HP ---
CC: Dr. Neri* HISTORY AND PHYSICAL: DATE OF ADMISSION: 12/08/16 PRIMARY CARE PROVIDER: Dr. Neri ATTENDING PHYSICIAN WHILE IN THE HOSPITAL: Dr. Nguyễn Pedersen * (report dictated by Sudhir Diez NP). CHIEF COMPLAINT: Chest pain. HISTORY OF PRESENT ILLNESS: Mr. Chavis is a 56-year-old male patient who has history of hypertension, hyperlipidemia, chronic pain, NV, history of TIA, and COPD. He comes in to the ER today stating that he was sitting on his couch, watching TV with his girlfriend and all of a sudden he had an episode of chest pain lasting 3 to 4 seconds, describes as sharp stabbing pain in the center of his chest. He had 3 more episodes like this while at rest, nonexertional, no associated shortness of breath. No nausea, no diaphoresis. Patient is concerned because he had a heart attack in the past and decided to come in to the hospital. He has a history of smoking. He does still use alcohol. He also gave the history of having some black stool earlier this morning but I do see that he is on ferrous sulfate. He came in to the ER. There was concern because of the chest pain and his risk factors. This could represent acute coronary syndrome, so we were asked to evaluate for admission. He denies any recent fevers. He states the pain is not positional. He states the pain is getting worse with deep breath. Because of the discomfort, we were asked to evaluate for admission. PAST MEDICAL HISTORY: Significant for: 1. Hypertension. 2. Hyperlipidemia. 3. Chronic pain. 4. NV. 5. TIA. 6. COPD. PAST SURGICAL HISTORY: He has had a hernia repair. HOME MEDICATIONS: He does not recall, so all I have is access to his previous list, which include: 1. Amlodipine 5 mg daily. 2. Zanaflex 4 mg p.o. every 8 hours as needed. 3. Flomax 0.4 mg daily. 4. Simvastatin 10 mg daily. 5. Omeprazole 40 mg daily. 6. Ofloxacin 0.3% otic b.i.d. 7. Claritin 10 mg p.o. daily. 8. Lisinopril/hydrochlorothiazide 1 tablet p.o. daily. 9. Skipwith 1 tablet every 6 hours as needed. 10. Ferrous sulfate 325 mg p.o. daily. 11. Zetia 10 mg p.o. daily. 12. Vitamin D3 2000 units daily. 13. Keflex 500 mg p.o. 4 times a day. 14. Aspirin 81 mg daily. 15. Albuterol one puff inhaled every 4 hours as needed. 16. Tudorza 1 puff inhaled b.i.d. ALLERGIES TO MEDICATIONS: Include GABAPENTIN. FAMILY HISTORY: Both his parents are alcoholic. SOCIAL HISTORY: He used to be a pack a day smoker, but he does not smoke for 4 years. He does drink daily, 4 to 5 beers every night. He does smoke marijuana. Denies any recreational drug use. Surrogate decision maker is his girlfriend, Julissa. REVIEW OF SYSTEMS: There is no documented fever. He denied having any significant weight change. There was no double vision. He denies having any ear discharge. He denies having any rhinorrhea. There is no sore throat, no thyroid enlargement. The chest pain from my HPI, denies any now. Denies having any abdominal pain. No nausea, no vomiting, no dysuria, no frequency, no seizure, no loss of consciousness, no pruritus, and no skin ulcerations. Review of 14 systems completed, all others negative. PHYSICAL EXAMINATION GENERAL: At this time, Mr. Chavis is a 56-year-old male patient. He appears to be well nourished, well developed. He is sitting in the ER stretcher. He does not appear to be in any acute distress. VITAL SIGNS: Reveals blood pressure 110/79, pulse 80, respirations 12, O2 sat 97%, temperature 98.2. HEENT: Head: Atraumatic, normocephalic. Eyes: EOMs are intact. Sclerae anicteric and not pale. Throat: Oral mucosa appears to be moist. No oropharyngeal erythema. NECK: Supple. LUNGS: Clear to auscultation bilaterally. No wheezes, rales, or rhonchi. HEART: Sounds S1 and S2. Regular rate and rhythm. No murmurs, rubs, or gallops. ABDOMEN: Soft, flat, nontender. Bowel sounds present. EXTREMITIES: Pulses 2+ throughout. He is able to move all 4 extremities with 5 /5 strength. NEUROLOGIC: The patient is awake. He is alert. He is oriented x3. His tongue is midline. Retread Builder is equal. No gross focal deficits. SKIN: Grossly intact. DIAGNOSTIC STUDIES/LAB DATA: Labs today revealed WBC of 4.8, RBC of 4.03, hemoglobin of 12.9, hematocrit 38, platelet count of 423,000. D-dimer less than 200. Sodium was 135, potassium 3.9, chloride of 99, bicarb 28, BUN 16, creatinine 1, glucose 121, lactate 1.0, calcium 9.6. Total bili 0.5, AST 20, ALT 19, alk phos 4. Troponin 0. Albumin 4.3. He did have a wrist x-ray obtained today, which revealed the suspected triquetral fracture noted on the previous exam, not well visualized in the current exam. He does have an elbow x-ray, which revealed joint effusion with minimally displaced fracture of the radial head. Chest x-ray revealed no active cardiopulmonary disease. He had an EKG obtained as well, which revealed normal sinus rhythm rate of 71. He had T inversions in V1 and V2 and no ST elevations. The T-wave inversions are not new. Old medical records reviewed. ASSESSMENT AND PLAN: Mr. Chavis is a 56-year-old male patient coming in to the ER today with complaints of chest pain. He will be admitted under observation status for: 1. Chest pain. The chest pain here sounds atypical, but he has significant risk factors for acute coronary syndrome. I think minimally we should cycle his troponins, keep on telemetry. If these are negative, we probably could go with an outpatient stress test tomorrow and we will continue to follow him closely. We will continue him on an aspirin. He is on statin and I would hold beta nathaly because of his lung disease. 2. Report of black tarry stool, again on rectal exam today I did not appreciate any black tarry stool but it could be from him taking iron. He does not know if he is on it still or not. I will send off a Hemoccult. We will monitor. We will repeat his H and H later tonight to monitor for any tarry stools. 3. Radial head fracture. We will touch base with Orthopedics, for the time being though we will put him in a sling. 4. Hypertension. Continue meds as prescribed. 5. Hyperlipidemia. Continue meds as prescribed. 6. Chronic pain. Continue Skipwith. 7. History of myocardial infarct. Continue statin and aspirin therapy. 8. History of transient ischemic attack. Continue with secondary prevention. 9. History of chronic obstructive pulmonary disease. Lungs sound clear currently. We will continue with inhalers as prescribed. 10. Deep venous thrombosis prophylaxis. Because of the concern of tarry stools , I will put on SCDs. 11. Code status: Full code. 12. Fluids, electrolytes, and nutrition. He can have a heart-healthy diet. TIME SPENT: On the admission was 60 minutes, greater than half the time was spent [id number] with the patient obtaining my history and physical; the other half of the time was spent going over the plan of care with the patient and implementing the plan of care. I did discuss the plan of care with my attending, Dr. Pedersen; he is in agreement. SUDHIR DIEZ NP [id number]/CPS #: [id number] MTDBernardo
[2016-12-09 04:54] LABS: Hematocrit 34 % (42-52); Hemoglobin 11.5 g/dl (14.0-18.0); Mean Corpuscular HGB Conc 34 g/dl (31-36); Mean Corpuscular Hemoglobin 33 pg (27-31); Mean Corpuscular Volume 97 fL (80-94); Mean Platelet Volume 7 um3 (7.4-10.4); Red Blood Count 3.54 10^6/ul (4.0-5.4); Red Cell Distribution Width 15 % (10.5-15); White Blood Count 6.4 10^3/ul (3.5-10.8)
[2016-12-09 05:08] LABS: Calcium 8.4 mg/dL (8.6-10.3); EGFR African American 80.3 (>60); EGFR Non-African American 62.4 (>60); HDL Cholesterol 42.4 mg/dL; Potassium 3.5 mmol/L (3.5-5.0)
[2016-12-09] MEDS ORDERED: Iohexol 350* (CONTRAST) 500 ML MDV IV ONE (08:45)
[2016-12-09] MEDS ORDERED: Tamsulosin CAP* 0.4 MG PO SCH (09:00)
[2016-12-09] MEDS ORDERED: Omeprazole CAP* 20 MG PO SCH (09:00)
[2016-12-09] MEDS ORDERED: Folic Acid TAB* 1 MG PO SCH (09:00)
[2016-12-09] MEDS ORDERED: Ezetimibe TAB* 10 MG PO SCH (09:00)
[2016-12-09] MEDS ORDERED: Hydrochlorothiazide TAB* 25 MG PO SCH (09:00)
[2016-12-09] MEDS ORDERED: amLODIPine TAB* 5 MG PO SCH (09:00)
[2016-12-09] MEDS ORDERED: Multivitamins/Minerals TAB PO SCH (09:00)
[2016-12-09] MEDS ORDERED: Lisinopril/HCTZ 20/25(NF) TAB PO SCH (09:00)
[2016-12-09] MEDS ORDERED: Lisinopril TAB* 10 MG PO SCH (09:00)
[2016-12-09] MEDS ORDERED: Aspirin Low Dose CHEW TAB* 81 MG PO SCH (09:00)
[2016-12-09] MEDS ORDERED: Thiamine TAB* 100 MG TAB PO SCH (09:00)
[2016-12-09] MEDS ORDERED: Atorvastatin* 10 MG TAB PO SCH (09:00)
--- NOTE | 2016-12-09 10:26 | RAD ---
HISTORY: Chest pain COMPARISONS: November 14, 2016, April 04, 2016 TECHNIQUE: Multiple contiguous axial CT scans of the chest were obtained after the administration of nonionic intravenous contrast, timed to the pulmonary arterial phase of contrast enhancement.. Coronal and sagittal multiplanar reformations are also submitted for review. FINDINGS: NECK AND THYROID: The lower neck and thyroid are unremarkable. CHEST WALL: There are subcentimeter short axis axillary lymph nodes. There is no lower cervical, axillary, or supraclavicular lymphadenopathy by size criteria. HEART AND PERICARDIUM: There is mild cardiomegaly. There is a small pericardial effusion. AORTA AND PULMONARY VASCULATURE: There is no pulmonary arterial filling defect to suggest pulmonary embolism. There is no linear filling defect within the aorta to suggest aortic dissection. MEDIASTINUM: There are subcentimeter short axis mediastinal lymph nodes. There is no mediastinal lymphadenopathy by size criteria. DOM: There is no hilar lymphadenopathy by size criteria. AIRWAY AND ESOPHAGUS: The airway is unremarkable, without endobronchial filling defect. The esophagus is grossly normal. LUNG PARENCHYMA: There is a 0.4 cm nodule of the right middle lobe on axial image 27 There are small lingular nodules, stable from the 2016 examination. There is mild pulmonary interstitial edema. PLEURA: Small bilateral pleural effusions are noted UPPER ABDOMEN: The upper abdomen is unremarkable. BONES AND SOFT TISSUES: No bone or soft tissue abnormalities are noted. OTHER: None. IMPRESSION: 1. NO PULMONARY ARTERIAL FILLING DEFECT TO SUGGEST PULMONARY EMBOLISM. 2. MILD PULMONARY INTERSTITIAL EDEMA. 3. SMALL BILATERAL PLEURAL EFFUSIONS. 4. SMALL PERICARDIAL EFFUSION. 5. SMALL PULMONARY PARENCHYMAL NODULES MEASURING UP TO 0.4 CM IN SIZE. SOME OF THESE ARE STABLE FROM PREVIOUS EXAMINATIONS. THE RECOMMENDATIONS FOR FOLLOWUP AND MANAGEMENT OF INCIDENTALLY DETECTED MULTIPLE PULMONARY NODULES LESS THAN 6 MM IN SIZE, IN A PATIENT WITHOUT A HISTORY OF MALIGNANCY, INCLUDE NO FOLLOWUP FOR A LOW-RISK PATIENT OR OPTIONAL FOLLOWUP CT IN 12 MONTHS FOR A HIGH RISK PATIENT. NOTES: SIZE = AVERAGE LENGTH AND WIDTH; HIGH RISK IS DEFINED A HISTORY OF SMOKING OR OTHER KNOW RISK FACTORS FOR LUNG CANCER; LOW RISK IS DEFINED MINIMAL OR ABSENT HISTORY OF SMOKING OR OTHER KNOWN RISK FACTORS. Zahida Mills, PIEDAD Elise, SHELLEY Alarcon, et al (2017) "Guidelines for Management of Incidental Pulmonary Nodules Detected on CT Images: From the Fleischner Society 2017." Radiology; 284(1): 228-243. doi:10.1148/radiol.8858377357 1.
[2016-12-09 11:01] VITALS: BP 97/63
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
[2016-12-09] MEDS ORDERED: Cetirizine* 10 MG TAB PO SCH (18:00)
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
== END 2016-12-09 13:05 | disposition home or self-care (01) ==
LOC: ED 18:37 → MEDTELE 20:30
PROVIDERS: ADMIT Hospitalist; ATTEND Internal Medicine
DX: R07.89 Other chest pain (principal); I10 Essential (primary) hypertension; E78.5 Hyperlipidemia, unspecified; G89.29 Other chronic pain; I25.2 Old myocardial infarction; Z86.73 Personal history of transient ischemic attack (TIA), and cerebral infarction without residual deficits; J44.9 Chronic obstructive pulmonary disease, unspecified; F10.10 Alcohol abuse, uncomplicated; Z79.899 Other long term (current) drug therapy; Z79.82 Long term (current) use of aspirin; J90 Pleural effusion, not elsewhere classified; J81.1 Chronic pulmonary edema; S52.121D Displaced fracture of head of right radius, subsequent encounter for closed fracture with routine healing; S62.111D Displaced fracture of triquetrum [cuneiform] bone, right wrist, subsequent encounter for fracture with routine healing; V19.3XXD Pedal cyclist (driver) (passenger) injured in unspecified nontraffic accident, subsequent encounter
CPT/HCPCS: 36415; 71010; 71275; 80048; 80053; 80061; 83036; 83605; 84484; 85014; 85018; 85025; 85379; 93005; 96374; 96375; 99284; A9270-GY; G0378; J2270; J2405; J3411; Q9967

== ENCOUNTER 2017-01-10 14:39 | Emergency (ER) | payer OTHER ==
[2017-01-10 14:46] VITALS: BP 118/85
--- NOTE | 2017-01-10 15:42 | RAD ---
INDICATION: Traumatic fracture right elbow COMPARISON: December 08, 2016 TECHNIQUE: AP, lateral, and oblique views were obtained. FINDINGS: There is partial interval healing of the essentially nondisplaced radial head fracture. There is mild irregularities about the medial epicondyle likely related to medial epicondylitis. There is a small joint effusion which has decreased in size. IMPRESSION: HEALING RADIAL HEAD FRACTURE.
[2017-01-10] MEDS ORDERED: Diazepam SYRINGE* 5 MG/ML SYRINGE IV ONE (15:46)
--- NOTE | 2017-01-10 15:49 | ED ---
Upper Extremity Pain - HPI Summary HPI Summary: 56M presents for xray for right elbow injury. He states he had a radial head fracture a month ago and has been follow up with his primary. He states that he had his splint removed a week ago. He has been taking Tylenol for pain but it has not been working. His primary sent him a script for an xray which he lost so he came here. He denies any numbness or tingling. He is right handed. - History of Current Complaint Chief Complaint: EDExtremityUpper Stated Complaint: RT ELBOW INJURY Time Seen by Provider: 01/10/17 14:49 - Allergies/Home Medications Allergies/Adverse Reactions: Allergies Allergy/AdvReac Type Severity Reaction Status Date / Time Gabapentin AdvReac Nausea And Verified 01/10/17 14:58 Vomiting PMH/Surg Hx/FS Hx/Imm Hx Endocrine/Hematology History: Reports: Hx Anemia Denies: Hx Anticoagulant Therapy - ASA daily, Hx Diabetes, Hx Thyroid Disease Cardiovascular History: Reports: Hx Angina, Hx Coronary Artery Disease, Hx Hypercholesterolemia, Hx Hypertension Denies: Hx Congestive Heart Failure, Hx Pacemaker/ICD Respiratory History: Reports: Hx Chronic Obstructive Pulmonary Disease (COPD), Other Respiratory Problems/Disorders - copd Denies: Hx Asthma GI History: Reports: Hx Gastroesophageal Reflux Disease, Other GI Disorders - appendectomy 11/2013 History: Denies: Hx Renal Disease Musculoskeletal History: Reports: Hx Back Problems - chronic low back pain, sciatica, Other Musculoskeletal History - back pain chronic Sensory History: Reports: Hx Contacts or Glasses Denies: Hx Hearing Aid Opthamlomology History: Reports: Hx Contacts or Glasses Neurological History: Reports: Hx CVA, Other Neuro Impairments/Disorders - epilepsy, ETOH abuse Denies: Hx Dementia, Hx Seizures Psychiatric History: Reports: Hx Substance Abuse Denies: Hx Panic Disorder - Surgical History Surgery Procedure, Year, and Place: s/p appendectomy 11/2013 Hx Anesthesia Reactions: No - Immunization History Date of Tetanus Vaccine: Unk Date of Influenza Vaccine: None Infectious Disease History: No Infectious Disease History: Denies: Hx Hepatitis, Hx Human Immunodeficiency Virus (HIV), Traveled Outside the [place] in Last 30 Days - Family History Known Family History: Positive: Other - cancer - Social History Alcohol Use: Daily Alcohol Amount: 100oz beer every night Hx Substance Use: Yes Substance Use Type: Reports: Marijuana Substance Use Comment - Amount & Last Used: patient states a few times a week Hx Tobacco Use: No - quit 2013 Smoking Status (MU): Former Smoker Type: Cigarettes Amount Used/How Often: quit 3 years ago Have You Smoked in the Last Year: Yes Review of Systems Negative: Fever Negative: Chest Pain Negative: Shortness Of Breath Positive: Myalgia - right elbow All Other Systems Reviewed And Are Negative: Yes Physical Exam Triage Information Reviewed: Yes Vital Signs On Initial Exam: Initial Vitals Temp Pulse Resp BP Pulse Ox 98.3 F 86 17 118/85 97 01/10/17 14:43 01/10/17 14:43 01/10/17 14:43 01/10/17 14:43 01/10/17 14:43 Vital Signs Reviewed: Yes Appearance: Positive: Well-Appearing Skin: Positive: Warm, Dry Head/Face: Positive: Normal Head/Face Inspection Eyes: Positive: Normal, Conjunctiva Clear Respiratory/Lung Sounds: Positive: Clear to Auscultation, Breath Sounds Present Cardiovascular: Positive: Normal, RRR Musculoskeletal: Positive: Strength/ROM Intact - right elbow, unable to full flex or extend by about 5 degrees,, Other - able to oppose all fingers, tender over radial head mild. good pulses, capillary refill<2secs, sensation grossly intact - Dustin Coma Scale Coma Scale Total: 15 Diagnostics - Vital Signs Vital Signs Temp Pulse Resp BP Pulse Ox 01/10/17 14:43 98.3 F 86 17 118/85 97 - Laboratory Lab Statement: Any lab studies that have been ordered have been reviewed, and results considered in the medical decision making process. - Radiology elbow Xray Interpretation: Positive (See Comments) - IMPRESSION: HEALING RADIAL HEAD FRACTURE. Radiology Interpretation Completed By: Radiologist Course/Dx - Course Course Of Treatment: 56M presents for xray for right elbow injury. He states he had a radial head fracture a month ago and has been follow up with his primary. He states that he had his splint removed a week ago. He has been taking Tylenol for pain but it has not been working. His primary sent him a script for an xray which he lost so he came here. He denies any numbness or tingling. on exam neurovascular intact. tenderness over radial head. xray shows healing fx. gave referral to ortho as patient states does not have full ROM back. patient understands and agrees with plan. - Diagnoses Differential Diagnosis/HQI/PQRI: Positive: Fracture (Closed), Strain, Sprain Provider Diagnoses: Elbow pain, healing fracture Discharge - Discharge Plan Condition: Good Disposition: HOME Referrals: Jamie Neri MD [Primary Care Provider] - Eileen Granados MD [Medical Doctor] - Additional Instructions: Follow up with ortho Take tyenlol for pain every 6 hours Return to ED if develop any new or worsening sypmtoms
== END 2017-01-10 15:59 | disposition home or self-care (01) ==
LOC: ED 14:39
DX: M25.521 Pain in right elbow (principal); S52.124D Nondisplaced fracture of head of right radius, subsequent encounter for closed fracture with routine healing; X58.XXXD Exposure to other specified factors, subsequent encounter; E11.9 Type 2 diabetes mellitus without complications; E07.9 Disorder of thyroid, unspecified; I25.119 Atherosclerotic heart disease of native coronary artery with unspecified angina pectoris; Z79.82 Long term (current) use of aspirin; E78.00 Pure hypercholesterolemia, unspecified; I10 Essential (primary) hypertension; J44.9 Chronic obstructive pulmonary disease, unspecified; K21.9 Gastro-esophageal reflux disease without esophagitis; Z86.73 Personal history of transient ischemic attack (TIA), and cerebral infarction without residual deficits; F12.90 Cannabis use, unspecified, uncomplicated; Z87.891 Personal history of nicotine dependence
CPT/HCPCS: 99281

== ENCOUNTER 2017-04-02 18:43 | Observation (INO) | payer OTHER ==
--- NOTE | 2017-04-02 19:46 | ED ---
HPI Chest Pain - HPI Summary HPI Summary: Pt presents to ED by EMS. Pt states this morning, after waking, developed chest discomfort/pressure. No radiation . Pt states feels mild nausea and SOB. Pt was given Ntg by EMS which improved his pain from 11/23 to 310. Pt denies sob, abdominal pain. No n/v/d. Pt with h/o CAD. Pt states [place] 3 years ago. No cath. Pt does not have a job placement specialist. Pt took full ASA today Pt's medications reviewed this visit - History of Current Complaint Chief Complaint: EDChestPainROMI Time Seen by Provider: 04/02/17 19:34 Hx Obtained From: Patient Onset/Duration: Started Hours Ago Timing: Constant Initial Severity: Moderate Current Severity: Moderate Pain Intensity: 4 Pain Scale Used: 0-10 Numeric Chest Pain Location: Mid Sternal Chest Pain Radiates: No Character: Pressure/Squeezing Aggravating Factor(s): Nothing Alleviating Factor(s): NTG 123 Associated Signs and Symptoms: Positive: Negative, Chest Pain - Additional Pertinent History Primary Care Physician: ROLDAN - Allergy/Home Medications Allergies/Adverse Reactions: Allergies Allergy/AdvReac Type Severity Reaction Status Date / Time Gabapentin AdvReac Nausea And Verified 01/10/17 14:58 Vomiting PMH/Surg Hx/FS Hx/Imm Hx Previously Healthy: Yes Endocrine/Hematology History: Reports: Hx Anemia Denies: Hx Anticoagulant Therapy - ASA daily, Hx Diabetes, Hx Thyroid Disease Cardiovascular History: Reports: Hx Angina, Hx Coronary Artery Disease, Hx Hypercholesterolemia, Hx Hypertension Denies: Hx Congestive Heart Failure, Hx Pacemaker/ICD Respiratory History: Reports: Hx Chronic Obstructive Pulmonary Disease (COPD), Other Respiratory Problems/Disorders - copd Denies: Hx Asthma GI History: Reports: Hx Gastroesophageal Reflux Disease, Other GI Disorders - appendectomy 11/2013 History: Denies: Hx Renal Disease Musculoskeletal History: Reports: Hx Back Problems - chronic low back pain, sciatica, Other Musculoskeletal History - back pain chronic Sensory History: Reports: Hx Contacts or Glasses Denies: Hx Hearing Aid Opthamlomology History: Reports: Hx Contacts or Glasses Neurological History: Reports: Hx CVA, Other Neuro Impairments/Disorders - epilepsy, ETOH abuse Denies: Hx Dementia, Hx Seizures Psychiatric History: Reports: Hx Substance Abuse Denies: Hx Panic Disorder - Surgical History Surgery Procedure, Year, and Place: s/p appendectomy 11/2013 Hx Anesthesia Reactions: No - Immunization History Date of Tetanus Vaccine: Unk Date of Influenza Vaccine: None Infectious Disease History: No Infectious Disease History: Denies: Hx Hepatitis, Hx Human Immunodeficiency Virus (HIV), Traveled Outside the [place] in Last 30 Days - Family History Known Family History: Positive: Other - cancer - Social History Occupation: Unemployed Lives: Alone Alcohol Use: Daily Alcohol Amount: 100oz beer every night Hx Substance Use: Yes Substance Use Type: Reports: Marijuana Substance Use Comment - Amount & Last Used: patient states a few times a week Hx Tobacco Use: No - quit 2013 Smoking Status (MU): Former Smoker Type: Cigarettes Amount Used/How Often: quit 3 years ago Have You Smoked in the Last Year: Yes Review of Systems Constitutional: Negative Eyes: Negative ENT: Negative Positive: Chest Pain Respiratory: Negative Gastrointestinal: Negative Genitourinary: Negative Musculoskeletal: Negative Skin: Negative Neurological: Negative Psychological: Normal All Other Systems Reviewed And Are Negative: Yes Physical Exam Triage Information Reviewed: Yes Vital Signs On Initial Exam: Initial Vitals Temp Pulse Resp BP Pulse Ox 99.2 F 99 20 134/98 97 04/02/17 19:12 04/02/17 19:12 04/02/17 19:12 04/02/17 19:12 04/02/17 19:12 Vital Signs Reviewed: Yes Appearance: Positive: Well-Appearing, No Pain Distress, Well-Nourished Skin: Positive: Warm, Skin Color Reflects Adequate Perfusion Head/Face: Positive: Normal Head/Face Inspection Eyes: Positive: Normal, EOMI, FAWN ENT: Positive: Normal ENT inspection, Hearing grossly normal, Pharynx normal Respiratory/Lung Sounds: Positive: Clear to Auscultation, Breath Sounds Present Cardiovascular: Positive: Normal, RRR Abdomen Description: Positive: Nontender, No Organomegaly, Soft Bowel Sounds: Positive: Present Musculoskeletal: Positive: Normal, Strength/ROM Intact Neurological: Positive: Normal, Sensory/Motor Intact, Alert, Oriented to Person Place, Time Diagnostics - Vital Signs Vital Signs Temp Pulse Resp BP Pulse Ox 04/02/17 19:12 99.2 F 99 20 134/98 97 - Laboratory Result Diagrams: 04/03/17 04:54 04/03/17 04:54 Lab Statement: Any lab studies that have been ordered have been reviewed, and results considered in the medical decision making process. Re-Evaluation - Re-Evaluation First Eval Change: Improved - pain improved with ntg will place paste trop neg d/w Dr. Pedersen - accepting obs Chest Pain Course/Dx - Course Assessment/Plan: Pt presents with chest pressure since this morning. Pain improved with NTG given by EMS. Pt had nausea and mild SOB. Pt took ASA this morning. Will check labs, cxr, nitro. anticpate admission. pt comfortable and in agreement with plan - Diagnoses Provider Diagnoses: Chest pain - Provider Notifications Discussed Care Of Patient With: Dr. Pedersen Discharge - Discharge Plan Condition: Stable Disposition: ADMITTED TO [facility]
[2017-04-02] MEDS ORDERED: Nitroglycerin TAB 0.4 MG* 0.4 MG TAB SL ONE (20:00)
[2017-04-02 20:03] LABS: Hematocrit 37 % (42-52); Hemoglobin 12.9 g/dl (14.0-18.0); Mean Corpuscular HGB Conc 35 g/dl (31-36); Mean Corpuscular Hemoglobin 33 pg (27-31); Mean Corpuscular Volume 94 fL (80-94); Mean Platelet Volume 6 um3 (7.4-10.4); Red Blood Count 3.94 10^6/ul (4.0-5.4); Red Cell Distribution Width 14 % (10.5-15)
--- NOTE | 2017-04-02 20:05 | RAD ---
INDICATION: Chest pain. Short of breath COMPARISON: None TECHNIQUE: An AP portable view obtained at 1950 hours is submitted. FINDINGS: Bones/Soft Tissues: There are no acute bony findings. Cardiomediastinal: The cardiomediastinal silhouette is normal. Lungs: There are no infiltrates. Pleura: There are no pleural effusions. Other: None IMPRESSION: NO ACTIVE DISEASE.
[2017-04-02 20:18] LABS: Albumin 4.4 g/dL (3.2-5.2); BUN/Creatinine Ratio 15.2 (8-20); Calcium 9.6 mg/dL (8.6-10.3); EGFR African American 93.6 (>60); EGFR Non-African American 72.8 (>60); Globulin 2.8 g/dL (2-4); Magnesium 1.8 mg/dL (1.9-2.7); Potassium 4.1 mmol/L (3.5-5.0); Total Bilirubin 0.5 mg/dL (0.2-1.0); Total Protein 7.2 g/dL (6.4-8.9)
--- NOTE | 2017-04-02 21:13 | HP ---
H&P (Free Text) History and Physical: Mr Chavis is a 56M HX CAD presenting with nitro-responsive chest pain for r/o ACS. Telemetry, trend troponin, chemical NST in AM. Additionally, he has bedbugs and will need isolation.
[2017-04-02] MEDS ORDERED: Acetaminophen TAB* 325 MG PO PRN (21:39)
[2017-04-02] MEDS ORDERED: Albuterol HFA INHALER* 8 gm MDI INH PRN (21:39)
[2017-04-02] MEDS ORDERED: Magnesium Sulfate 2 GM IV* 2 GM/50 ML BAG IVPB ONE (22:19)
[2017-04-02] MEDS ORDERED: LORazepam TAB(*) 1 MG PO SCH (23:00)
[2017-04-02] MEDS: Nitroglycerin 2% OINT* 1 GM PAK TOPICAL SCH (23:45)
--- NOTE | 2017-04-03 00:16 | HP ---
CC: Dr. Neri * HISTORY AND PHYSICAL: DATE OF ADMISSION: 04/02/17. PROVIDER: Katia Powers NP. PRIMARY CARE PROVIDER: Dr. Neri. ATTENDING PHYSICIAN WHILE IN THE HOSPITAL: Dr. Nguyễn Pedersen * (report dictated by Katia Powers NP) CHIEF COMPLAINT: Chest pain. HISTORY OF PRESENT ILLNESS: Mr. Chavis is a 56-year-old male, who presents with a history of hypertension, hyperlipidemia, chronic pain, NM, history of TIA , and COPD. He comes to the ER today stating that he had midsternal chest pain that started approximately at 10 a.m., it did not radiate to his neck or shoulder. He states that the pain was sharp. He states that he took a baby aspirin while at home. He denies any shortness of breath, nausea, or diaphoresis with the chest pain. The patient came to the ER because he was concerned about his history of having a heart attack in the past. The patient does have a history of smoking. He states that he quit 3 years ago when he had his last NM. There was a concern because of his chest pain and his risk factors , so were asked to evaluate and admit for acute coronary syndrome. He denies any recent fevers. He states that his pain is currently at a 1 to 2 on a scale of 10. PAST MEDICAL HISTORY: Significant for: 1. Hypertension. 2. Hyperlipidemia. 3. Chronic pain. 4. NM. 5. TIA. 6. COPD. PAST SURGICAL HISTORY: He had a hernia repair. HOME MEDICATIONS: 1. Vitamin D3, 2000 units p.o. daily. 2. Aspirin 81 mg p.o. daily. 3. Albuterol HFA inhaler 1 puff q. 4 hours p.r.n. 4. Acetaminophen 650 mg p.o. q. 4 hours p.r.n. 5. Omeprazole 40 mg p.o. daily. 6. Multivitamin 1 tablet p.o. daily. 7. Loratadine 10 mg p.o. daily. 8. Lisinopril/hydrochlorothiazide 20/25, one tablet p.o. daily. 9. Folic acid 1 mg p.o. daily. 10. Ferrous sulfate 325 mg p.o. daily. 11. Zetia 10 mg p.o. daily. 12. Amlodipine 5 mg p.o. daily. 13. Thiamine 100 mg p.o. daily. 14. Flomax 0.4 mg p.o. daily. ALLERGIES: Include GABAPENTIN. FAMILY HISTORY: Both his parents are alcoholic. SOCIAL HISTORY: He used to smoke a pack a day. He quit 3 years ago. He does report that he drinks daily. He reports that he drinks approximately 125 ounces of beer daily. He also reports that he does smoke marijuana. He last used marijuana yesterday. Surrogate decision maker is his friend, Snow Torrez, her phone number is [phone]. REVIEW OF SYSTEMS: There is no documented fever. He denies having any significant weight change. There is no double vision. He denies having any ear discharge. He denies any rhinorrhea. There is no sore throat. No thyroid enlargement. He does report chest pain that is midsternal. He states that the pain was sharp. He now currently rates the pain at a 1 to 2. He denies any abdominal pain, nausea, vomiting, or diarrhea. He denies dysuria or urinary frequency. No seizures. No loss of consciousness. No pruritus. He does have small scabbed areas noted to his back which he says are from bed bug bites. Review of 14 systems was completed and all others are negative. PHYSICAL EXAMINATION GENERAL: At this time, Mr. Chavis is a 56-year-old male who appears well nourished, well developed. He is sitting on the ER stretcher. He does not appear to be in any acute distress. VITAL SIGNS: Blood pressure 134/98, heart rate is 99, temp was 99.2, respirations 20, O2 sat 97%. HEENT: Head is atraumatic, normocephalic. Eyes: EOMs are intact. Sclerae anicteric, not pale. Oral mucosa is moist. NECK: Supple. LUNGS: Clear to auscultation bilaterally. No wheezes, rales, or rhonchi. HEART: S1, S2. Regular rate and rhythm. No murmurs, rubs, or gallops. ABDOMEN: Soft, nontender. Bowel sounds are present x4. EXTREMITIES: Pulses are +2 throughout. He is able to move all extremities. Strength is 5/5. NEUROLOGICAL: The patient is awake, alert. He is oriented x3. Tongue is midline. Rn Staffing are equal. No gross focal deficits. SKIN: Grossly intact. DIAGNOSTIC STUDIES/LAB DATA: WBCs are 7.0, RBCs 3.94, hemoglobin 12.9, hematocrit 37, platelet count is 386. Sodium 134, potassium 4.1, chloride 100, carbon dioxide 26, BUN 16, creatinine 1.05, glucose is 102, mag was 1.8, AST is 22, ALT 20, alk phos is 63. Troponin was 0.00. Albumin is 4.4. BNP is 47. He did have a chest x-ray, radiologist's impression is no active disease. EKG shows sinus rhythm at 80, no ST or T changes. ASSESSMENT AND PLAN: Mr. Chavis is a 56-year-old male patient who came into the ER today with complaints of chest pain since 10 a.m. this morning. He will be admitted under observation status for: 1. Chest pain: He has a significant risk factor, history of acute coronary syndrome. We will do serial troponins, keep him on telemetry. If these are negative, we will proceed with a nuclear stress test, chemical. We will continue him on aspirin. He is on statins at this time. We will repeat an EKG in the morning. He will have nitro paste 0.5 inch applied to his chest. 2. Hypomagnesemia: We will give him 2 g of magnesium IV. 3. FEN: He can have a heart-healthy diet. He will be n.p.o. after midnight for nuclear stress. 4. Code status: Full code. 5. DVT prophylaxis: He will placed on heparin 5000 units subcu. 6. He has a history of myocardial infarctions, continue statins and aspirin therapy. 7. He has a history of transient ischemic attack. We will continue with secondary prevention. 8. He has a history of chronic obstructive pulmonary disease. His lungs are clear currently. We will continue with his inhalers as prescribed. 9. Hyperlipidemia: We will continue with his statins as prescribed. 10. The patient does report bed bug infestation. He states that he has been currently trying to get rid of bed bugs for the past year. He reports that he killed 2 bed bugs while in the emergency room. We will place him on contact isolation and follow hospital protocols. TIME SPENT: Time spent on this admission was 60 minutes, greater than half of that time was spent [id number] with the patient obtaining my history and physical; the other half of the time was spent going over the plan of care with the patient and implementing the plan of care. I did discuss this plan with my attending, Dr. Pedersen, he is in agreement. KATIA POWERS, CYTOTECHNOLOGIST/CYTOLOGY SUPERVISOR [id number]/CPS #: [id number] [email or web address]
[2017-04-03 05:12] LABS: Hematocrit 36 % (42-52); Hemoglobin 12.3 g/dl (14.0-18.0); Mean Corpuscular HGB Conc 34 g/dl (31-36); Mean Corpuscular Hemoglobin 32 pg (27-31); Mean Corpuscular Volume 95 fL (80-94); Mean Platelet Volume 6 um3 (7.4-10.4); Red Blood Count 3.78 10^6/ul (4.0-5.4); Red Cell Distribution Width 14 % (10.5-15); White Blood Count 6.9 10^3/ul (3.5-10.8)
[2017-04-03 05:25] LABS: BUN/Creatinine Ratio 18.3 (8-20); Calcium 9.1 mg/dL (8.6-10.3); EGFR African American 80.3 (>60); EGFR Non-African American 62.4 (>60); Magnesium 2.2 mg/dL (1.9-2.7)
[2017-04-03] MEDS ORDERED: Omeprazole CAP* 20 MG PO SCH (09:00)
[2017-04-03] MEDS ORDERED: Cholecalciferol TAB* 1000 UNITS PO SCH (09:00)
[2017-04-03] MEDS ORDERED: Lisinopril TAB* 10 MG PO SCH (09:00)
[2017-04-03] MEDS ORDERED: Thiamine TAB* 100 MG TAB PO SCH (09:00)
[2017-04-03] MEDS ORDERED: Aspirin Low Dose CHEW TAB* 81 MG PO SCH (09:00)
[2017-04-03] MEDS ORDERED: Ezetimibe TAB* 10 MG PO SCH (09:00)
[2017-04-03] MEDS ORDERED: Cetirizine* 10 MG TAB PO SCH (09:00)
[2017-04-03] MEDS ORDERED: Multivitamins/Minerals TAB PO SCH (09:00)
[2017-04-03] MEDS ORDERED: amLODIPine TAB* 5 MG PO SCH (09:00)
[2017-04-03] MEDS ORDERED: Folic Acid TAB* 1 MG PO SCH (09:00)
[2017-04-03] MEDS ORDERED: Tamsulosin CAP* 0.4 MG PO SCH (09:00)
[2017-04-03] MEDS ORDERED: Ferrous Sulfate TAB* 325 MG PO SCH (09:00)
[2017-04-03] MEDS: Nitroglycerin 2% OINT* 1 GM PAK TOPICAL SCH (09:10)
[2017-04-03 09:51] VITALS: BP 140/83
--- NOTE | 2017-04-03 14:17 | RAD ---
Edited for charges. INDICATION: Chest pain in a patient with multiple cardiac risk factors COMPARISON: Similar examination dated December 13, 2012 TECHNIQUE: SPECT imaging was performed. Rest images were acquired following the intravenous injection of 10 millicuries of technetium 99m tetrofosmin at 0719 hours. At 1201 hours stress images were acquired following the intravenous administration of 25 millicuries of technetium 99m tetrofosmin. The patient received intravenous Lexiscan prior to the stress image acquisition. FINDINGS: There are no defects of the stress-induced or fixed nature. The cardiac chamber size is normal. There are no wall motion abnormalities. The ejection fraction is calculated at 62% during stress. IMPRESSION: No scintigraphic evidence of ischemia or infarction. ASSESSMENT: Low risk MTDD
[2017-04-03] MEDS ORDERED: Regadenoson* 0.4 MG/5 ML SYRINGE ONE (14:41)
--- NOTE | 2017-04-03 15:13 | PN ---
Subjective Date of Service: 04/03/17 Interval History: Patient seen and examined at bedside. Denies fever, chills, shortness of breath , chest discomfort, N/V/D. Pt states he is hungry and wants to go home. Tele: Sinus rhythm, rate 70-80's. Family History: Unchanged from Admission Social History: Unchanged from Admission Past Medical History: Unchanged from Admission Objective Active Medications: Acetaminophen (Tylenol Tab*) 650 mg PO Q4H PRN Reason: PAIN Albuterol (Ventolin Hfa Inhaler*) 1 puff INH Q4HR PRN Reason: SOB/WHEEZING Amlodipine Besylate (Norvasc Tab*) 5 mg PO DAILY [facility] Aspirin (Aspirin Low Dose Tab*) 81 mg PO DAILY [facility] Cetirizine HCl (Zyrtec*) 10 mg PO DAILY [facility] Cholecalciferol (Vitamin D Tab*) 2,000 units PO DAILY [facility] Ezetimibe (Zetia Tab*) 10 mg PO DAILY [facility] Ferrous Sulfate (Ferrous Sulfate Tab*) 325 mg PO DAILY [facility] Folic Acid (Folvite Tab*) 1 mg PO DAILY [facility] Lisinopril (Prinivil Tab*) 20 mg PO DAILY [facility] Lorazepam (Ativan Tab(*)) 0 - 6 mg PO .PER [facility] PROTOCOL [facility] Multivitamins/Minerals (Theragran/Minerals Tab*) 1 tab PO DAILY [facility] Nitroglycerin (Nitroglycerin 2% Oint*) 0.5 inch TOPICAL 0800,1400 [facility] Omeprazole (Prilosec Cap*) 40 mg PO DAILY [facility] Pharmacy Profile Note (Nitro Patch/Oint Remove*) 1 note TOPICAL 2000 IDALIA Tamsulosin HCl (Flomax Cap*) 0.4 mg PO DAILY [facility] Thiamine HCl (Vitamin B-1 Tab*) 100 mg PO DAILY [facility] Vital Signs - 8 hr 04/03/17 04/03/17 08:00 09:09 Temperature 98.2 F Pulse Rate 67 Respiratory 16 16 Rate Blood Pressure 140/83 (mmHg) O2 Sat by Pulse 99 Oximetry Oxygen Devices in Use Now: None Appearance: NAD, laying in bed Ears/Nose/Mouth/Throat: Mucous Membranes Moist Respiratory: Symmetrical Chest Expansion and Respiratory Effort, Clear to Auscultation Cardiovascular: NL Sounds; No Murmurs; No JVD, RRR Abdominal: NL Sounds; No Tenderness; No Distention Extremities: No Edema Skin: No Rash or Ulcers Neurological: Alert and Oriented x 3, NL Muscle Strength and Tone Lines/Tubes/Other Access: Clean, Dry and Intact Peripheral IV - site benign Nutrition: Taking PO's Result Diagrams: 04/03/17 04:54 04/03/17 04:54 Assess/Plan/Problems-Billing Assessment: Mr. Chavis is a 56 yo male with PMH significant for HTN, HLD, CAD, TIA and COPD who presented to the emergency room with complaints of chest discomfort. - Patient Problems (1) Chest pain Code(s): R07.9 - CHEST PAIN, UNSPECIFIED SNOMED Code(s): 80772258 Comment: - Denies chest pain today - Troponin 0.00 x3 - Nuclear stress test - Low risk (2) Electrolyte abnormality Code(s): E87.8 - OTH DISORDERS OF ELECTROLYTE AND FLUID BALANCE, NEC SNOMED Code(s): 452704719 Comment: - Hypomagnesemia - Resolved - Elevated creatinine - follow-up outpatient (3) HTN (hypertension) Code(s): I10 - ESSENTIAL (PRIMARY) HYPERTENSION SNOMED Code(s): 46051766 Comment: - Mostly normotensive, SBP 110-140's - Continue lisinopril/HCTZ (4) HLD (hyperlipidemia) Code(s): E78.5 - HYPERLIPIDEMIA, UNSPECIFIED SNOMED Code(s): 91490929 Comment: - Continue statin (5) History of TIA (transient ischemic attack) Comment: - Continue secondary prevention (6) COPD (chronic obstructive pulmonary disease) Code(s): J44.9 - CHRONIC OBSTRUCTIVE PULMONARY DISEASE, UNSPECIFIED SNOMED Code(s): 83421109 Comment: - No signs of exacerbation at this time (7) DVT prophylaxis Code(s): BIE4728 - SNOMED Code(s): 520000866 (8) Full code status Code(s): Z78.9 - OTHER SPECIFIED HEALTH STATUS SNOMED Code(s): 823604938 Status and Disposition: OBV. Stable for discharge to home today.
[2017-04-03] MEDS ORDERED: Nitro Patch/OINT Remove TOPICAL SCH (20:00)
--- NOTE | 2017-04-04 04:36 | DS ---
CC: Dr. Neri* DISCHARGE SUMMARY: DATE OF ADMISSION: 04/02/17 DATE OF DISCHARGE: 04/03/17 ATTENDING PHYSICIAN: Dr. Allen Harris * (dictated by Shelby Trivedi NP). PRIMARY CARE PROVIDER: Dr. Neri. PRIMARY DIAGNOSIS: Chest pain, suspect noncardiac in nature. SECONDARY DIAGNOSES: 1. Hypertension. 2. Hyperlipidemia. 3. Chronic pain. 4. Coronary artery disease, status post myocardial infarction. 5. Transient ischemic attack. 6. Chronic obstructive pulmonary disease. STUDIES WHILE IN THE HOSPITAL: 1. Chest x-ray from 04/02/17. Radiologist's impression: No active disease. 2. Nuclear cardiac stress test on 04/03/17. Ground School Instructor's observation: The patient admitted with chest pain. Baseline EKG, normal sinus rhythm. Normal Lexiscan, 0.4 mg was infused over 10 seconds. Chest pain, none. Remitting arrhythmia, none. ST changes, none. Myoview injected at 40 seconds. Conclusion: No evidence of myocardial ischemia by EKG criteria with redone of nuclear portion to be reported separately by radiology. Radiologist's impression: No scintigraphic evidence of ischemia or infarction. Assessment, low risk. DISCHARGE MEDICATIONS: Continued home medications: 1. Vitamin D3 2000 units oral daily. 2. Aspirin 81 mg oral daily. 3. Albuterol HFA inhaler 1 puff inhalation every 4 hours as needed for shortness of breath or wheeze. 4. Tylenol 650 mg oral every 4 hours as needed for pain. 5. Omeprazole 40 mg oral daily. 6. Multivitamin 1 tablet oral daily. 7. Loratadine 10 mg oral daily. 8. Lisinopril/hydrochlorothiazide 20/25 one tablet oral daily. 9. Folic acid 1 mg oral daily. 10. Ferrous sulfate 325 mg oral daily. 11. Zetia 10 mg oral daily. 12. Amlodipine 5 mg oral daily. 13. Thiamine 100 mg oral daily. 14. Tamsulosin 0.4 mg oral daily. HISTORY OF PRESENT ILLNESS/HOSPITAL COURSE: Mr. Chavis is a 56-year-old male with past medical history significant for hypertension, hyperlipidemia, chronic pain, coronary artery disease status post myocardial infarction, history of TIA and COPD, who presented to the emergency room with complaints of midsternal chest pain that did not radiate, he described the pain as sharp. He took the baby aspirin while at home. He denied any associated shortness of breath, nausea, or diaphoresis. The patient was concerned due to his history of previous RI. He reports quitting smoking 3 years ago when he had RI. He presented to the hospital for further evaluation of his symptoms. While in the emergency room, the patient had a chest x-ray showing no acute findings. He had an EKG showing a sinus rhythm. No signs of acute ischemia. He had labs that were unremarkable. His initial troponin was 0.00. He was found to have hypomagnesium. He received magnesium replacements. The hospitalists were asked to evaluate the patient for admission. While in the hospital, the patient had his troponins trended that were 0.00 x3. He underwent a nuclear cardiac stress test showing a low risk. He no longer has chest discomfort. Mr. Chavis is stable for discharge to home today. Vital signs are as follows: Temperature 98.2, heart rate 67, respiratory rate 16, O2 sat 99% on room air, blood pressure 140/83. DISCHARGE PLAN: Mr. Chavis will be discharged to home. Activity as tolerated. She is to be on a heart healthy diet. He will resume all of his usual home medications. He has a followup appointment with his primary care provider, Dr. Neri on April 04 at 4 p.m. I suspect the patient's chest discomfort was noncardiac in nature. It is unclear if this was indigestion or related to anxiety. The patient has been asked to return to the emergency room for any further chest pain, shortness of breath. The patient's creatinine was slightly elevated today at 1.20. I was encouraged him to drink plenty of fluids. I recommend following up his creatinine and appears he has been this high in the past. This is a summarized report of a complex medical history and hospitalization. For further details, please see the entire medical record. TIME SPENT: Time for this discharge was approximately 50 minutes. Greater than half of that was spent [id number] with the patient discussing discharge plans and instructions. CONDITION ON DISCHARGE: Stable. Reviewed by PING JUNIOR 04/04/17 2034 [id number]/[facility] #: [id number] SOREN
== END 2017-04-03 16:10 | disposition home or self-care (01) ==
LOC: ED 18:43 → MEDTELE 20:49
PROVIDERS: ADMIT Hospitalist; ATTEND Internal Medicine
DX: R07.9 Chest pain, unspecified (principal); I10 Essential (primary) hypertension; E78.5 Hyperlipidemia, unspecified; G89.29 Other chronic pain; I25.10 Atherosclerotic heart disease of native coronary artery without angina pectoris; I25.2 Old myocardial infarction; J44.9 Chronic obstructive pulmonary disease, unspecified
CPT/HCPCS: 36415; 71010; 78452; 80048; 80053; 82550; 83735; 83880; 84484; 85025; 93005; 93017; 99285; A9270-GY; A9502; G0378; J2785; J3475

== ENCOUNTER → 2017-05-15 22:10 | Emergency (ER) | payer OTHER ==
[~2017-05-15 22:10] MED LIST: Ketorolac INJ* 30 MG/ML 1 ML VIAL IV ONE; Morphine INJ* 4 MG/ML 1 ML CARPUJECT IV ONE; NS 0.9% 1000 ML* 1,000 ML IV ONE; Ondansetron INJ* 2 MG/ML VIAL IV ONE
--- OUTSIDE RECORDS SUMMARY | 2017-05-15 22:35 | XMS REPORT ---
:1960 External Reference #:[id number] Author Organization [facility] Address [address] [place] [address] Phone [phone] Care Team Providers Name Role Phone Edy Soriano M.D. Care Team Information Lcpc Unavailable Jamie Neri M.D. Primary Care Physician Unavailable Payers Type Date Identification Numbers Payment Provider Subscriber Health Maintenance Policy Number: [id number] [facility] Edy Chavis Organization (HMO) PayID: [id number] [id number] [place] [id number] Problems Date Description Provider Status Onset: 05/10/2017 Essential hypertension Saji Vázquez MD Active Family History Date Family Member(s) Problem(s) Comments General No Current Problems Social History Type Date Description Comments Occupation Disabled Cigarette Use Never Smoked Cigarettes Cigars Never Smoked Cigars Pipe Never Smoked A Pipe Smokeless Tobacco Never Used Smokeless Tobacco ETOH Use Currently rarely consumes alcohol Allergies, Adverse Reactions, Alerts Date Description Reaction Status Severity Comments 05/10/2017 NKDA active Medications Medication Date Status Form Strength Qnty SIG Indications Ordering Provider Triamcinolone 05/10/ Active Paste 0.1% 10gm apply to Saji [employer] 2018 oral sorCeci Maurice every MD night before bed Cyclobenzaprine / Active Tablets 10mg Stevanovi HCL 0000 cJamie M.D. Ezetimibe / Active Tablets 10mg Stevanovi 0000 cJamie M.D. Loratadine / Active Tablets 10mg Stevanovi 0000 cJamie M.D. Amlodipine / Active Tablets 5mg Stevanovi Besylate 0000 cJamie M.D. Daily-[place] / Active Tablets Stevanovi 0000 cWilyir, M.D. Lisinopril-Hydroc / Active Tablets 20-25mg Stevsonal hlorothiazide 0000 Jamie jacobs M.D. Omeprazole / Active Capsules 40mg Stevanovi 0000 Jamie Lopez M.D. [facility] B-1 / Active Tablets 100mg Beny 0000 N.P., Mark Folic Acid / Active Tablets 1mg Beny 0000 N.P., Mark Tamsulosin HCL / Active Capsules 0.4mg Take One Unknown 0000 Capsule By Mouth Every Day Aspirin / Active Tablets DR 81mg Take 1 Unknown 0000 Tablet By Mouth Every Day Atorvastatin / Active Tablets 20mg Take 1 Unknown Calcium 0000 Tablet By Mouth Every Day Vitamin D3 / Active Capsules 2000Unit Take 1 Unknown 0000 Capsule Every Day Ferrous Sulfate / Active Tablets 325(65Fe) Take 1 Unknown 0000 mg Tablet By Mouth Every Day Results Description No Information Procedures Description No Information Encounters Type Date Location Provider CPT E/M Dx Office Visit 05/10/2017 1:30p [place],After 04/16/07 Saji Vázquez, [address] K12.30 Plan of Care Future Appointment(s):06/14/2017 3:15 pm - Saji Vázquez MD at [place], After 04/16/800 - Saji Vázquez MDK12.30 Oral mucositis (ulcerative) , unspecified
[2017-05-15 23:27] LABS: ABS Basophils 0 10^3/ul (0-0.2); ABS Eosinophils 0 10^3/ul (0-0.6); ABS Lymphocytes 1.6 10^3/ul (1.0-4.8); ABS Neutrophils 5.1 10^3/ul (1.5-7.7); ABS Nucleated RBC 0 10^3/ul; Eosinophil % 0.6 % (0-6); Hematocrit 37 % (42-52); Hemoglobin 12.4 g/dl (14.0-18.0); Lymphocyte % 20.6 % (25-47); Mean Corpuscular HGB Conc 34 g/dl (31-36); Mean Corpuscular Hemoglobin 32 pg (27-31); Mean Corpuscular Volume 95 fL (80-94); Mean Platelet Volume 6 um3 (7.4-10.4); Nucleated Red Blood Cells % 0; Platelet Count 351 10^3/ul (150-450); Red Blood Count 3.84 10^6/ul (4.0-5.4); Red Cell Distribution Width 14 % (10.5-15); White Blood Count 7.7 10^3/ul (3.5-10.8)
[2017-05-15 23:42] LABS: INR 0.89 (0.77-1.02)
[2017-05-15 23:43] LABS: EGFR Non-African American 66.9 (>60)
[2017-05-16 00:51] LABS: Urine Appearance Cloudy; Urine Blood 1+ (Negative); Urine Color Amber; Urine Ketones Negative (Negative); Urine Protein Negative (Negative); Urine Specific Gravity 1.018 (1.010-1.030); Urine Urobilinogen Negative (Negative)
[2017-05-16 01:13] VITALS: BP 111/80
--- NOTE | 2017-05-16 04:41 | ED ---
Je Huynh Thomas, scribed for Ravi Wood on 05/15/17 at 2224 . Abdominal Pain/Male - HPI Summary HPI Summary: The patient is a 56 year old male with a history of kidney stones presenting with sudden-onset left-sided flank pain that began two hours ago. He rates the pain 5/10. The patient denies anterior abdominal pain or hematuria. - History of Current Complaint Chief Complaint: EDFlankPain Stated Complaint: LT SIDE PAIN Time Seen by Provider: 05/15/17 22:14 Hx Obtained From: Patient Onset/Duration: Sudden Onset, Lasting Hours - 2, Still Present Severity Currently: Severe Pain Intensity: 5 Pain Scale Used: 0-10 Numeric Location: Flank - L-sided Radiates: No Aggravating Factor(s): Nothing Alleviating Factor(s): Nothing Associated Signs And Symptoms: Negative: Fever, Other - hematuria - Allergies/Home Medications Allergies/Adverse Reactions: Allergies Allergy/AdvReac Type Severity Reaction Status Date / Time MS Gabapentin [Gabapentin] AdvReac Nausea And Verified 01/10/17 14:58 Vomiting PMH/Surg Hx/FS Hx/Imm Hx Endocrine/Hematology History: Reports: Hx Anemia Denies: Hx Anticoagulant Therapy - ASA daily, Hx Diabetes, Hx Thyroid Disease Cardiovascular History: Reports: Hx Angina, Hx Coronary Artery Disease, Hx Hypercholesterolemia, Hx Hypertension Denies: Hx Congestive Heart Failure, Hx Pacemaker/ICD Respiratory History: Reports: Hx Chronic Obstructive Pulmonary Disease (COPD), Other Respiratory Problems/Disorders - copd Denies: Hx Asthma GI History: Reports: Hx Gastroesophageal Reflux Disease, Other GI Disorders - appendectomy 11/2013 History: Denies: Hx Renal Disease Musculoskeletal History: Reports: Hx Back Problems - chronic low back pain, sciatica, Other Musculoskeletal History - back pain chronic Sensory History: Reports: Hx Contacts or Glasses Denies: Hx Hearing Aid Opthamlomology History: Reports: Hx Contacts or Glasses Neurological History: Reports: Hx CVA, Other Neuro Impairments/Disorders - epilepsy, ETOH abuse Denies: Hx Dementia, Hx Seizures Psychiatric History: Reports: Hx Substance Abuse Denies: Hx Panic Disorder - Surgical History Surgery Procedure, Year, and Place: s/p appendectomy 11/2013 Hx Anesthesia Reactions: No - Immunization History Date of Tetanus Vaccine: Unk Date of Influenza Vaccine: None Infectious Disease History: No Infectious Disease History: Denies: Hx Hepatitis, Hx Human Immunodeficiency Virus (HIV), Traveled Outside the [place] in Last 30 Days - Family History Known Family History: Positive: Other - cancer - Social History Alcohol Use: Daily Alcohol Amount: 100oz beer every night Hx Substance Use: Yes Substance Use Type: Reports: Marijuana Substance Use Comment - Amount & Last Used: patient states a few times a week Hx Tobacco Use: No - quit 2013 Smoking Status (MU): Former Smoker Type: Cigarettes Amount Used/How Often: quit 3 years ago Have You Smoked in the Last Year: Yes Review of Systems Negative: Fever Negative: Abdominal Pain Positive: flank pain - L-sided. Negative: hematuria All Other Systems Reviewed And Are Negative: Yes Physical Exam - Summary Physical Exam Summary: Appearance: Well appearing Skin: warm, dry, reflects adequate perfusion Head/face: normal Eyes: EOMI, FAWN ENT: normal Neck: supple, non-tender Respiratory: CTA, breath sounds present Cardiovascular: RRR, pulses symmetrical Abdomen: soft, non-tender (although there is left flank tenderness) Back: He has left flank tenderness. Bowel: present Musculoskeletal: normal, strength/ROM intact Neuro: normal, sensory motor intact, A&Ox3 Triage Information Reviewed: Yes Vital Signs On Initial Exam: Initial Vitals Temp Pulse Resp BP Pulse Ox 98.3 F 92 16 113/64 97 05/15/17 22:12 05/15/17 22:12 05/15/17 22:12 05/15/17 22:12 05/15/17 22:12 Vital Signs Reviewed: Yes Diagnostics - Vital Signs Vital Signs Temp Pulse Resp BP Pulse Ox 05/15/17 22:12 98.3 F 92 16 113/64 97 - Laboratory Lab Results: Lab Results 05/15/17 05/15/17 05/15/17 Range/Units 22:55 22:55 22:55 WBC 7.7 (3.5-10.8) 10^3/ul RBC 3.84 L (4.0-5.4) 10^6/ul Hgb 12.4 L (14.0-18.0) g/dl Hct 37 L (42-52) % MCV 95 H (80-94) fL MCH 32 H (27-31) pg MCHC 34 (31-36) g/dl RDW 14 (10.5-15) % Plt Count 351 (150-450) 10^3/ul MPV 6 L (7.4-10.4) um3 Neut % (Auto) 66.0 (38-83) % Lymph % (Auto) 20.6 L (25-47) % Waldo % (Auto) 12.5 H (1-9) % Eos % (Auto) 0.6 (0-6) % Baso % (Auto) 0.3 (0-2) % Absolute Neuts (auto) 5.1 (1.5-7.7) 10^3/ul Absolute Lymphs (auto) 1.6 (1.0-4.8) 10^3/ul Absolute Monos (auto) 1.0 H (0-0.8) 10^3/ul Absolute Eos (auto) 0 (0-0.6) 10^3/ul Absolute Basos (auto) 0 (0-0.2) 10^3/ul Absolute Nucleated RBC 0 10^3/ul Nucleated RBC % 0 INR (Anticoag Therapy) 0.89 (0.77-1.02) APTT 25.7 L (26.0-36.3) seconds Sodium 134 (133-145) mmol/L Potassium 3.7 (3.5-5.0) mmol/L Chloride 100 L (101-111) mmol/L Carbon Dioxide 25 (22-32) mmol/L Anion Gap 9 (2-11) mmol/L BUN 18 (6-24) mg/dL Creatinine 1.13 (0.67-1.17) mg/dL Est GFR ( Amer) 86.0 (>60) Est GFR (Non-Af Amer) 66.9 (>60) BUN/Creatinine Ratio 15.9 (8-20) Glucose 104 H (70-100) mg/dL Calcium 9.9 (8.6-10.3) mg/dL Total Bilirubin 0.50 (0.2-1.0) mg/dL AST 30 (13-39) U/L ALT 28 (7-52) U/L Alkaline Phosphatase 88 (34-104) U/L Troponin I 0.00 (<0.04) ng/mL Total Protein 7.3 (6.4-8.9) g/dL Albumin 4.5 (3.2-5.2) g/dL Globulin 2.8 (2-4) g/dL Albumin/Globulin Ratio 1.6 (1-3) Lipase 14 (11.0-82.0) U/L Urine Color Urine Appearance Urine pH (5-9) Ur Specific [place] (1.010-1.030) Urine Protein (Negative) Urine Ketones (Negative) Urine Blood (Negative) Urine Nitrate (Negative) Urine Bilirubin (Negative) Urine Urobilinogen (Negative) Ur Leukocyte Esterase (Negative) Urine WBC (Auto) (Absent) Urine RBC (Auto) (Absent) Ur Squamous Epith Cells (Absent) Urine Bacteria (Absent) Hyaline Casts (Absent) Urine Glucose (Negative) 05/15/17 Range/Units 23:55 WBC (3.5-10.8) 10^3/ul RBC (4.0-5.4) 10^6/ul Hgb (14.0-18.0) g/dl Hct (42-52) % MCV (80-94) fL MCH (27-31) pg MCHC (31-36) g/dl RDW (10.5-15) % Plt Count (150-450) 10^3/ul MPV (7.4-10.4) um3 Neut % (Auto) (38-83) % Lymph % (Auto) (25-47) % Waldo % (Auto) (1-9) % Eos % (Auto) (0-6) % Baso % (Auto) (0-2) % Absolute Neuts (auto) (1.5-7.7) 10^3/ul Absolute Lymphs (auto) (1.0-4.8) 10^3/ul Absolute Monos (auto) (0-0.8) 10^3/ul Absolute Eos (auto) (0-0.6) 10^3/ul Absolute Basos (auto) (0-0.2) 10^3/ul Absolute Nucleated RBC 10^3/ul Nucleated RBC % INR (Anticoag Therapy) (0.77-1.02) APTT (26.0-36.3) seconds Sodium (133-145) mmol/L Potassium (3.5-5.0) mmol/L Chloride (101-111) mmol/L Carbon Dioxide (22-32) mmol/L Anion Gap (2-11) mmol/L BUN (6-24) mg/dL Creatinine (0.67-1.17) mg/dL Est GFR ( Amer) (>60) Est GFR (Non-Af Amer) (>60) BUN/Creatinine Ratio (8-20) Glucose (70-100) mg/dL Calcium (8.6-10.3) mg/dL Total Bilirubin (0.2-1.0) mg/dL AST (13-39) U/L ALT (7-52) U/L Alkaline Phosphatase (34-104) U/L Troponin I (<0.04) ng/mL Total Protein (6.4-8.9) g/dL Albumin (3.2-5.2) g/dL Globulin (2-4) g/dL Albumin/Globulin Ratio (1-3) Lipase (11.0-82.0) U/L Urine Color Madyson Urine Appearance Cloudy Urine pH 5.0 (5-9) Ur Specific [place] 1.018 (1.010-1.030) Urine Protein Negative (Negative) Urine Ketones Negative (Negative) Urine Blood 1+ H (Negative) Urine Nitrate Negative (Negative) Urine Bilirubin Negative (Negative) Urine Urobilinogen Negative (Negative) Ur Leukocyte Esterase Negative (Negative) Urine WBC (Auto) Trace(0-5/hpf) (Absent) Urine RBC (Auto) 1+(3-5/hpf) H (Absent) Ur Squamous Epith Cells Present H (Absent) Urine Bacteria Absent (Absent) Hyaline Casts Present H (Absent) Urine Glucose Negative (Negative) Result Diagrams: 05/15/17 22:55 05/15/17 22:55 Lab Statement: Any lab studies that have been ordered have been reviewed, and results considered in the medical decision making process. - CT CT Abd/Pel CT Interpretation: No Acute Changes - Neprholithiasis. Dr. Wood has reviewed this report. CT Interpretation Completed By: Radiologist Abdominal Pain Fem Course/Dx - Course Assessment/Plan: The patient is a 56 year old male with a history of kidney stones presenting with sudden-onset left-sided flank pain that began two hours ago. In the ED course the patient was given IV fluids, Toradol, morphine, and Zofran. Bloodwork and urinalysis were obtained. CT Abd/Pel shows nephrolithiasis. The patient is diagnosed with flank pain. The patient is instructed to follow up with primary care. The patient is prescribed Flexeril and Motrin. - Diagnoses Differential Diagnosis/HQI/PQRI: Appendicitis, Constipation, Renal Colic, Ureteral Stone, Urinary Tract Infection Provider Diagnoses: Flank pain Discharge - Discharge Plan Condition: Stable Disposition: HOME Prescriptions: Cyclobenzaprine TAB* [Flexeril 10 MG TAB*] 10 mg PO TID PRN #15 tab MDD 3 PRN Reason: Pain Ibuprofen TAB* [Motrin TAB* 600 MG] 600 mg PO Q8H PRN #20 tab MDD 3 PRN Reason: Pain Patient Education Materials: Flank Pain (ED) Referrals: Jamie Neri MD [Primary Care Provider] - 3 Days Additional Instructions: Follow up with Dr. Neri in three days. Return to the emergency department for any new or worsening symptoms. The documentation as recorded by the Je rome Thomas accurately reflects the service I personally performed and the decisions made by Nina frankel Emmanuel.
--- NOTE | 2017-05-16 07:55 | RAD ---
CLINICAL HISTORY: Left flank pain, renal colic COMPARISON: November 14, 2016, May 19, 2011 TECHNIQUE: Multiple contiguous axial CT scans were obtained of the abdomen and pelvis, without intravenous contrast enhancement. Coronal and sagittal multiplanar reformations are submitted for review. Oral contrast was not administered. FINDINGS: The study is limited by the lack of intravenous contrast. This limits evaluation of the solid organs and vasculature. LUNG BASES: There is lingular nodularity. This can be identified in retrospect on the previous examinations as far back as 2011 and is stable consistent with benign nodularity given the stability. LIVER: The liver is diffusely low in attenuation compared to the spleen. There are no focal hepatic parenchymal masses. The liver is upper limits of normal in size. BILE DUCTS: There is no intrahepatic or extrahepatic biliary dilatation. GALLBLADDER: The gallbladder is normal, without pericholecystic inflammatory change. PANCREAS: The pancreas is normal, without mass or ductal dilatation. SPLEEN: Normal in size and appearance. UPPER GI TRACT: Evaluation of the gastrointestinal tract is limited by incomplete gastric distention. The upper GI tract is unremarkable. SMALL BOWEL AND MESENTERY: The small bowel is normal in contour, course, and caliber. There is no obstruction or dilatation. COLON: There are a few scattered diverticula of the descending sigmoid colon. There is no pericolonic inflammatory change. ADRENALS: Again noted is left adrenal nodule consistent with an adrenal adenoma. KIDNEYS: The kidneys are normal in shape, size, contour, and axis. Vascular calcifications are noted. There is no hydronephrosis. There is a punctate left renal calyceal stone measuring 0.2 cm in size... BLADDER: There is mild circumferential bladder wall thickening. PELVIC ORGANS: The prostate gland is normal. The seminal vesicles are symmetric. AORTA: There is calcific atherosclerotic disease of the abdominal aorta and its branches, without aneurysmal dilatation IVC: Unremarkable LYMPH NODES: There is no lymphadenopathy by size criteria. ABDOMINAL WALL: There are fat-containing inguinal hernias bilaterally. BONES AND SOFT TISSUES: There are mild diffuse degenerative changes. OTHER: None IMPRESSION: 1. PUNCTATE NONOBSTRUCTING LEFT RENAL CALYCEAL STONE. NO HYDRONEPHROSIS. 2. FATTY INFILTRATION OF THE LIVER. 3. SCATTERED DIVERTICULA OF THE COLON. 4. MILD BLADDER WALL THICKENING WHICH MAY BE AN ARTIFACT OF INCOMPLETE DISTENTION. 5. BILATERAL FAT-CONTAINING INGUINAL HERNIAS.
== END | disposition home or self-care (01) ==
LOC: ED 22:10
DX: R10.84 Generalized abdominal pain (principal); Z87.891 Personal history of nicotine dependence; K76.0 Fatty (change of) liver, not elsewhere classified
CPT/HCPCS: 36415; 74176; 80053; 81003; 81015; 83690; 84484; 85025; 85610; 85730; 96374; 96375; 99283; J1885; J2270; J2405

== ENCOUNTER 2017-06-05 10:08 | Day surgery (SDC) | payer OTHER ==
[~2017-06-05 10:08] MED LIST changes: -Ketorolac INJ* 30 MG/ML 1 ML VIAL IV ONE; -Morphine INJ* 4 MG/ML 1 ML CARPUJECT IV ONE; -NS 0.9% 1000 ML* 1,000 ML IV ONE; -Ondansetron INJ* 2 MG/ML VIAL IV ONE; +ceFAZolin 2 GM in NS 0.9% 100 ml IVPB ONE
[2017-06-05] MEDS ORDERED: ceFAZolin 2 GM in 100 MLS NS (*) BAG IVPB ONE (10:11)
[2017-06-05] MEDS ORDERED: Lidocaine 1% MPF wEPI 200,000* 30 ML SDV ONE (14:09)
[2017-06-05] MEDS ORDERED: Midazolam* 1 MG/ML 2 ML VIAL (2 MG) ONE ×2 (14:19→15:16)
[2017-06-05] MEDS ORDERED: fentaNYL* 50 MCG/ML 2 ML VIAL (100 MCG VIAL) ONE (14:20)
[2017-06-05] MEDS ORDERED: Lidocaine 2% PF * 5 ML VIAL ONE (14:26)
[2017-06-05] MEDS ORDERED: Propofol* 10 MG/ML 20 ML BTL IV PUSH ONE (14:26)
[2017-06-05] MEDS ORDERED: Naloxone* 0.4 MG/ML 1 ML VIAL IV PRN (15:11)
[2017-06-05] MEDS ORDERED: Mineral Oil Sterile, TOPICAL* 25 ML BTL ONE (15:27)
[2017-06-05 17:24] VITALS: BP 101/71
== END 2017-06-05 16:45 | disposition home or self-care (01) ==
LOC: OR 10:08
PROVIDERS: ATTEND Plastic Surgery
DX: C44.311 Basal cell carcinoma of skin of nose (principal); I10 Essential (primary) hypertension; I25.2 Old myocardial infarction; J44.9 Chronic obstructive pulmonary disease, unspecified; I73.9 Peripheral vascular disease, unspecified; F10.10 Alcohol abuse, uncomplicated
CPT/HCPCS: 88305; 88331; 88332; A9270-GY; J0690; J2001; J2250; J2704; J3010

== ENCOUNTER 2017-08-27 15:43 | Emergency (ER) | payer OTHER ==
--- OUTSIDE RECORDS SUMMARY | 2017-08-27 15:59 | XMS REPORT ---
:1960 External Reference #:[id number] Author Organization [facility] Address [address] [place] [address] Phone [phone] Care Team Providers Name Role Phone Edy Soriano M.D. Care Team Information Computer Programmer Chief Unavailable Jamie Neri M.D. Primary Care Physician Unavailable Payers Type Date Identification Numbers Payment Provider Subscriber Health Maintenance Policy Number: [id number] [facility] Edy Chavis Organization (HMO) PayID: [id number] [address] [place] [phone] Problems Date Description Provider Status Onset: 05/10/2017 [...] Ordering Provider Triamcinolone 05/10/ Active Paste 0.1% 15gm apply to Saji [employer] 2018 oral [...] 0000 mg Tablet By Mouth Every Day Vital Signs Date Vital Result Comment 08/02/2017 Weight 242.00 lb Weight in kg's 109.771 Height 66 inches 5'6" Height in cm's 167.6 cm BMI (Body Mass Index) 39.1 kg/m2 05/10/2017 BP Systolic 152 mmHg BP Diastolic 89 mmHg Heart Rate 82 /min Respiratory Rate 17 /min Weight 242.00 lb Weight in kg's 109.771 Height 66 inches 5'6" Height in cm's 167.6 cm BMI (Body Mass Index) 39.1 kg/m2 Results Test Date Test Result H/L Range Note Laboratory test finding 08/02/2017 Surgical Pathology <pending> Procedures Date CPT Code Description Status 08/02/2017 76825 Biopsy Floor Of Mouth Completed Encounters Type Date Location Provider CPT E/M Dx Office Visit 06/14/2017 3:15p [place],After 04/16/07 Saji Vázquez, [address] K12.30 Office Visit 05/10/2017 1:30p [place],After 04/16/07 Saji Vázquez, [address] K12.30 Plan of Care No Information Available
[2017-08-27 17:30] LABS: ABS Basophils 0.1 10^3/ul (0-0.2); ABS Eosinophils 0.1 10^3/ul (0-0.6); ABS Monocytes 0.9 10^3/ul (0-0.8); ABS Neutrophils 5.1 10^3/ul (1.5-7.7); ABS Nucleated RBC 0 10^3/ul; Eosinophil % 1.6 % (0-6); Hematocrit 39 % (42-52); Hemoglobin 13.4 g/dl (14.0-18.0); Mean Corpuscular HGB Conc 35 g/dl (31-36); Mean Corpuscular Hemoglobin 33 pg (27-31); Mean Corpuscular Volume 94 fL (80-94); Mean Platelet Volume 6.4 um3 (7.4-10.4); Nucleated Red Blood Cells % 0; Platelet Count 403 10^3/ul (150-450); Red Blood Count 4.13 10^6/ul (4.0-5.4); Red Cell Distribution Width 13 % (10.5-15); White Blood Count 8.2 10^3/ul (3.5-10.8)
[2017-08-27 17:39] LABS: EGFR Non-African American 72.8 (>60)
[2017-08-27] MEDS ORDERED: Ciproflox/Dexameth OTIC.SUSP* 7.5 ML BTL LEFT EAR ONE (18:13)
--- NOTE | 2017-08-27 18:13 | ED ---
Throat Pain/Nasal Congestion - HPI Summary HPI Summary: 56-year-old male presents with a bug in his ears since Sunday. He states he believes it is infected. He states he killed it with peroxide. He has been placing toliet paper in his ear trying to get out has not been able to. He states he's noticed some swelling below his ear on his neck. He states swelling has gotten worse. He denies any fevers. Denies any change in hearing. He states the area feels itchy. He states he wants the bug out. He states he has a history of bugs in his ears. He denies any difficulty swallowing. He denies any neck stiffness. He denies any chest pain shortness breath. He is not diabetic. - History of Current Complaint Chief Complaint: EDEarPain Time Seen by Provider: 08/27/17 17:59 - Allergies/Home Medications Allergies/Adverse Reactions: Allergies Allergy/AdvReac Type Severity Reaction Status Date / Time gabapentin AdvReac Nausea And Verified 08/27/17 15:48 Vomiting PMH/Surg Hx/FS Hx/Imm Hx Endocrine/Hematology History: Reports: Hx Anemia Denies: Hx Anticoagulant Therapy - ASA daily, Hx Diabetes, Hx Thyroid Disease Cardiovascular History: Reports: Hx Angina, Hx Coronary Artery Disease, Hx Hypercholesterolemia, Hx Hypertension, Other Cardiovascular Problems/Disorders - acute coronary artery syndrome, high cholesterol Denies: Hx Congestive Heart Failure, Hx Pacemaker/ICD Respiratory History: Reports: Hx Chronic Obstructive Pulmonary Disease (COPD), Other Respiratory Problems/Disorders - copd Denies: Hx Asthma GI History: Reports: Hx Gastroesophageal Reflux Disease, Other GI Disorders - appendectomy 11/2013 History: Reports: Hx Kidney Stones - has one now Denies: Hx Renal Disease Musculoskeletal History: Reports: Hx Back Problems - chronic low back pain, sciatica, Other Musculoskeletal History - back pain chronic Sensory History: Reports: Hx Contacts or Glasses Denies: Hx Hearing Aid Opthamlomology History: Reports: Hx Contacts or Glasses Neurological History: Reports: Hx CVA, Other Neuro Impairments/Disorders - epilepsy, ETOH abuse Denies: Hx Dementia, Hx Seizures Psychiatric History: Reports: Hx Substance Abuse Denies: Hx Panic Disorder - Surgical History Surgery Procedure, Year, and Place: s/p appendectomy 11/2013 Hx Anesthesia Reactions: No - Immunization History Date of Tetanus Vaccine: Unk Date of Influenza Vaccine: None Infectious Disease History: No Infectious Disease History: Denies: Hx Hepatitis, Hx Human Immunodeficiency Virus (HIV), Traveled Outside the [place] in Last 30 Days - Family History Known Family History: Positive: Other - cancer - Social History Alcohol Use: Daily Alcohol Amount: 100oz beer every night Hx Substance Use: Yes Substance Use Type: Reports: Marijuana Substance Use Comment - Amount & Last Used: patient states a few times a week Hx Tobacco Use: No - quit 2013 Smoking Status (MU): Former Smoker Type: Cigarettes Amount Used/How Often: quit 3 years ago Have You Smoked in the Last Year: Yes Review of Systems Negative: Fever Positive: Other - foreign body left ear Negative: Chest Pain Negative: Shortness Of Breath All Other Systems Reviewed And Are Negative: Yes Physical Exam Triage Information Reviewed: Yes Vital Signs On Initial Exam: Initial Vitals Temp Pulse Resp BP Pulse Ox 99.5 F 105 16 126/76 98 08/27/17 15:48 08/27/17 15:48 08/27/17 15:48 08/27/17 15:48 08/27/17 15:48 Vital Signs Reviewed: Yes Appearance: Positive: Well-Appearing Skin: Positive: Warm, Dry Head/Face: Positive: Normal Head/Face Inspection Eyes: Positive: Normal, EOMI, FAWN, Conjunctiva Clear ENT: Positive: Pharynx normal, TMs normal, Other - Black object in left auditory canal, auditory canal edematous and erythematous left Neck: Positive: Tenderness @ - left lymph nodes, Other: - edema left side of neck Respiratory/Lung Sounds: Positive: Clear to Auscultation, Breath Sounds Present Cardiovascular: Positive: Normal, RRR Musculoskeletal: Positive: Normal Neurological: Positive: Normal Diagnostics - Vital Signs Vital Signs Temp Pulse Resp BP Pulse Ox 08/27/17 15:48 99.5 F 105 16 126/76 98 - Laboratory Lab Results: Lab Results 08/27/17 08/27/17 Range/Units 17:14 17:14 WBC 8.2 (3.5-10.8) 10^3/ul RBC 4.13 (4.0-5.4) 10^6/ul Hgb 13.4 L (14.0-18.0) g/dl Hct 39 L (42-52) % MCV 94 (80-94) fL MCH 33 H (27-31) pg MCHC 35 (31-36) g/dl RDW 13 (10.5-15) % Plt Count 403 (150-450) 10^3/ul MPV 6.4 L (7.4-10.4) um3 Neut % (Auto) 62.9 (38-83) % Lymph % (Auto) 24.0 L (25-47) % [place] % (Auto) 10.8 H (0-7) % Eos % (Auto) 1.6 (0-6) % Baso % (Auto) 0.7 (0-2) % Absolute Neuts (auto) 5.1 (1.5-7.7) 10^3/ul Absolute Lymphs (auto) 2.0 (1.0-4.8) 10^3/ul Absolute Monos (auto) 0.9 H (0-0.8) 10^3/ul Absolute Eos (auto) 0.1 (0-0.6) 10^3/ul Absolute Basos (auto) 0.1 (0-0.2) 10^3/ul Absolute Nucleated RBC 0 10^3/ul Nucleated RBC % 0 Sodium 133 L (139-145) mmol/L Potassium 4.2 (3.5-5.0) mmol/L Chloride 94 L (101-111) mmol/L Carbon Dioxide 27 (22-32) mmol/L Anion Gap 12 H (2-11) mmol/L BUN 18 (6-24) mg/dL Creatinine 1.05 (0.67-1.17) mg/dL Est GFR ( Amer) 93.6 (>60) Est GFR (Non-Af Amer) 72.8 (>60) BUN/Creatinine Ratio 17.1 (8-20) Glucose 115 H (70-100) mg/dL Calcium 9.7 (8.6-10.3) mg/dL Total Bilirubin 0.50 (0.2-1.0) mg/dL AST 24 (13-39) U/L ALT 22 (7-52) U/L Alkaline Phosphatase 70 (34-104) U/L C-React Prot High Sens 3.15 mg/L Total Protein 7.6 (6.4-8.9) g/dL Albumin 4.5 (3.2-5.2) g/dL Globulin 3.1 (2-4) g/dL Albumin/Globulin Ratio 1.5 (1-3) Result Diagrams: 08/27/17 17:14 08/27/17 17:14 Lab Statement: Any lab studies that have been ordered have been reviewed, and results considered in the medical decision making process. EENT Course/Dx - Course Course Of Treatment: 56-year-old male presents with a bug in his ears since Sunday. He states he believes it is infected. He states he killed it with peroxide. He has been placing toliet paper in his ear trying to get out has not been able to. He states he's noticed some swelling below his ear on his neck. He states swelling has gotten worse. He denies any fevers. Denies any change in hearing. He states the area feels itchy. He states he wants the bug out. He states he has a history of bugs in his ears. He denies any difficulty swallowing. He denies any neck stiffness. He denies any chest pain shortness breath. He is not diabetic. On exam has black foreign body in ear left. Removed it with tweezers. Has edema left ear. External auditory canal is edematous and erythematous. Will treat with Ciprodex and ciprofloxacin for otitis externa due to the extent of the swelling of the left ear. Patient understands and agrees with plan. - Differential Diagnoses Differential Diagnoses: Foreign Body, Otitis Externa, Otitis Media - Diagnoses Provider Diagnoses: Foreign body in left ear, Otitis externa Discharge - Sign-Out/Discharge Documenting (check all that apply): Discharge/Admit/Transfer - Discharge Plan Condition: Good Disposition: HOME Prescriptions: Ciprofloxacin TAB* [Cipro 500 MG TAB*] 500 mg PO BID #13 tab Patient Education Materials: Otitis Externa (ED) Referrals: Jamie Neri MD [Primary Care Provider] - Additional Instructions: Use ciprodex 4 drops twice a day for 7 days take cipro twice a day for 7 days Follow up with primary in a week to make sure resolving Return to ED if develop any new or worsening symptoms - Billing Disposition and Condition Condition: GOOD Disposition: HOME
[2017-08-27] MEDS ORDERED: Ciprofloxacin TAB* 500 MG PO ONE (18:14)
[2017-08-27 18:45] VITALS: BP 134/90
== END 2017-08-27 18:44 | disposition home or self-care (01) ==
LOC: ED 15:43
DX: S00.452A Superficial foreign body of left ear, initial encounter (principal); H60.92 Unspecified otitis externa, left ear; X58.XXXA Exposure to other specified factors, initial encounter; Y92.9 Unspecified place or not applicable; Z87.891 Personal history of nicotine dependence
CPT/HCPCS: 36415; 80053; 85025; 86141; 99282; A9270-GY

== ENCOUNTER 2017-12-31 15:46 | Emergency (ER) | payer OTHER ==
[2017-12-31 15:54] VITALS: BP 118/79
--- NOTE | 2017-12-31 17:07 | ED ---
Throat Pain/Nasal Congestion - HPI Summary HPI Summary: 57 year male presents with left ear irritation today. He states he got a bedbug in her ear. He states he has been flushing it with peroxide. He states he did dig his finger into his ear. He admits to some decrease in hearing. No sinus congestion. No fever. Doesn't have an history of ear infections. States he has know bed bugs at home. admits to some pain radiating to his side of his neck. no other symptoms. no chest pain or SOB. - History of Current Complaint Chief Complaint: EDEarPain Time Seen by Provider: 12/31/17 16:30 - Allergies/Home Medications Allergies/Adverse Reactions: Allergies Allergy/AdvReac Type Severity Reaction Status Date / Time gabapentin AdvReac Nausea And Verified 12/31/17 15:54 Vomiting PMH/Surg Hx/FS Hx/Imm Hx Endocrine/Hematology History: Reports: Hx Anemia Denies: Hx Anticoagulant Therapy - ASA daily, Hx Diabetes, Hx Thyroid Disease Cardiovascular History: Reports: Hx Angina, Hx Coronary Artery Disease, Hx Hypercholesterolemia, Hx Hypertension, Other Cardiovascular Problems/Disorders - acute coronary artery syndrome, high cholesterol Denies: Hx Congestive Heart Failure, Hx Pacemaker/ICD Respiratory History: Reports: Hx Chronic Obstructive Pulmonary Disease (COPD), Other Respiratory Problems/Disorders - copd Denies: Hx Asthma GI History: Reports: Hx Gastroesophageal Reflux Disease, Other GI Disorders - appendectomy 11/2013 History: Reports: Hx Kidney Stones - has one now Denies: Hx Renal Disease Musculoskeletal History: Reports: Hx Back Problems - chronic low back pain, sciatica, Other Musculoskeletal History - back pain chronic Sensory History: Reports: Hx Contacts or Glasses Denies: Hx Hearing Aid Opthamlomology History: Reports: Hx Contacts or Glasses Neurological History: Reports: Hx CVA, Other Neuro Impairments/Disorders - epilepsy, ETOH abuse Denies: Hx Dementia, Hx Seizures Psychiatric History: Reports: Hx Substance Abuse Denies: Hx Panic Disorder - Surgical History Surgery Procedure, Year, and Place: s/p appendectomy 11/2013 Hx Anesthesia Reactions: No - Immunization History Date of Tetanus Vaccine: Unk Date of Influenza Vaccine: None Infectious Disease History: No Infectious Disease History: Denies: Hx Hepatitis, Hx Human Immunodeficiency Virus (HIV), Traveled Outside the [place] in Last 30 Days - Family History Known Family History: Positive: Other - cancer - Social History Alcohol Use: Occasionally Alcohol Amount: 100oz beer every night Hx Substance Use: Yes Substance Use Type: Reports: Marijuana Substance Use Comment - Amount & Last Used: patient states a few times a week Hx Tobacco Use: No - quit 2013 Smoking Status (MU): Former Smoker Type: Cigarettes Amount Used/How Often: quit 3 years ago Have You Smoked in the Last Year: Yes Review of Systems Negative: Fever Positive: Ear Ache - left ear Negative: Chest Pain Negative: Shortness Of Breath All Other Systems Reviewed And Are Negative: Yes Physical Exam Triage Information Reviewed: Yes Vital Signs On Initial Exam: Initial Vitals Temp Pulse Resp BP Pulse Ox 97.9 F 104 20 118/79 98 12/31/17 15:53 12/31/17 15:53 12/31/17 15:53 12/31/17 15:53 12/31/17 15:53 Vital Signs Reviewed: Yes Appearance: Positive: Well-Appearing Skin: Positive: Warm, Dry Head/Face: Positive: Normal Head/Face Inspection Eyes: Positive: Normal, EOMI, FAWN, Conjunctiva Clear ENT: Positive: Pharynx normal, TMs normal - some fluid behind ear, Other - scratch of ear canal left with some erythema around it Respiratory/Lung Sounds: Positive: Clear to Auscultation, Breath Sounds Present Cardiovascular: Positive: Normal, RRR Musculoskeletal: Positive: Normal Neurological: Positive: Normal Psychiatric: Positive: Normal Diagnostics - Vital Signs Vital Signs Temp Pulse Resp BP Pulse Ox 12/31/17 15:53 97.9 F 104 20 118/79 98 - Laboratory Lab Statement: Any lab studies that have been ordered have been reviewed, and results considered in the medical decision making process. EENT Course/Dx - Course Course Of Treatment: 57 year male presents with left ear irritation today. He states he got a bedbug in her ear. He states he has been flushing it with peroxide. He states he did dig his finger into his ear. He admits to some decrease in hearing. No sinus congestion. No fever. Doesn't have an history of ear infections. States he has know bed bugs at home. admits to some pain radiating to his side of his neck. no other symptoms. no chest pain or SOB. On exam has some fluid behind TM. Has scratch in left ear canal was some erythema around. No foreign body seen. Could be an early otitis external worse irritation ears. We'll give the Ciprodex that if symptoms get worse can take. Patient understands agrees with plan. - Differential Diagnoses Differential Diagnoses: Foreign Body, Otitis Externa, Otitis Media - Diagnoses Provider Diagnoses: Irritation of left ear Discharge - Sign-Out/Discharge Documenting (check all that apply): Patient Departure - Discharge Plan Condition: Good Disposition: HOME Prescriptions: Ciproflox/Dexameth OTIC.SUSP* [Ciprodex OTIC.SUSP*] 4 drop OTIC BID #1 btl Referrals: Jamie Neri MD [Primary Care Provider] - Additional Instructions: if symptoms get worst: Use 4 drops twice a day for 7 days Take Tylenol for pain every 6 hours as needed chew gum Follow up with primary in a week to make sure resolving Return to ED if develop any new or worsening symptoms - Billing Disposition and Condition Condition: GOOD Disposition: Home
== END 2017-12-31 17:36 | disposition home or self-care (01) ==
LOC: ED 15:46
DX: H92.02 Otalgia, left ear (principal); Z86.73 Personal history of transient ischemic attack (TIA), and cerebral infarction without residual deficits; M54.5 Low back pain; G89.29 Other chronic pain; Z87.891 Personal history of nicotine dependence
CPT/HCPCS: 99282